=== PATIENT | female | born 1990 | race Caucasian/White ===

== ENCOUNTER 2017-08-09 16:15 | Inpatient (IN) | payer OTHER ==
[2017-08-09] MEDS ORDERED: Lidocaine 1% 30 ML SDV ONE (16:23)
--- NOTE | 2017-08-09 16:55 | PCM.PREANE ---
Preanesthetic Assessment - Anesthesia/Transfusion/Family Hx Anesthesia History: Prior Anesthesia Without Reaction Family History of Anesthesia Reaction: No Transfusion History: No Prior Transfusion(s) - Review of Systems General: No Symptoms Pulmonary: No Symptoms Cardiovascular: No Symptoms Gastrointestinal: Abdominal Pain (cramping) Neurological: No Symptoms Other: Reports: Easy Bruising - Physical Assessment NPO Status Date: 08/09/17 NPO Status Time: 14:30 (crackers and water) O2 Sat by Pulse Oximetry: 99 Respiratory Rate: 16 Vital Signs: Last Vital Signs Temp 96.6 F 08/09/17 16:20 Pulse 73 08/09/17 16:20 Resp 16 08/09/17 16:20 BP 115/70 08/09/17 16:20 Pulse Ox 99 08/09/17 16:20 Height: 5 ft 6 in Weight: 67.132 kg ASA Class: 1E Mental Status: Alert & Oriented x3 Airway Class: Mallampati = 1 Dentition: Reports: Normal Dentition Thyro-Mental Finger Breadths: 3 ROM/Head Extension: Full Lungs: Clear to Auscultation, Normal Respiratory Effort Cardiovascular: Regular Rate, Regular Rhythm - Allergies Allergies/Adverse Reactions: Allergies Allergy/AdvReac Type Severity Reaction Status Date / Time nickel Allergy Rash Verified 08/09/17 16:26 - Blood Blood Available: No - Acknowledgements Anesthesia Type Planned: General Anesthesia Pt an Appropriate Candidate for the Planned Anesthesia: Yes Alternatives and Risks of Anesthesia Discussed w Pt/Guardian: Yes Pt/Guardian Understands and Agrees with Anesthesia Plan: Yes PreAnesthesia Questionnaire Cardiovascular History: Reports: Other (See Below) Other Cardiovascular History: heart murmur as a child but has resolved Respiratory History: Reports: None 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 OB/BYN History: hx bartholin cyst removal Dermatologic History: Reports: Eczema - Past Surgical History HEENT Surgical History: Reports: Oral Surgery Female Surgical History: Reports: D&C - SUBSTANCE USE Smoking Status *Q: Never Smoker Tobacco Use Within Last Twelve Months: No Second Hand Smoke Exposure: No Days Per Week of Alcohol Use: 0 Recreational Drug Use History: No - HOME MEDS Home Medications: Home Meds Vit W-Ca,Fe,FA(<1 mg) [ Vitamins] 1 each PO DAILY 04/30/16 [ History] Acetaminophen [Tylenol] 650 mg PO Q4H PRN #0 tablet 05/02/16 [Rx] Docusate Sodium [Colace] 100 mg PO BID PRN #0 cap 05/02/16 [Rx] Ibuprofen [IJD: Ibuprofen] 600 mg PO Q4H PRN #0 tablet 05/02/16 [Rx] - CURRENT (IN HOUSE) MEDS Current Meds: Current Medications Discontinued Medications Lidocaine HCl (Xylocaine-Mpf 1%) Confirm Administered Dose 30 ml .ROUTE .STK- MED ONE Stop: 08/09/17 16:24
[2017-08-09] MEDS ORDERED: Lidocaine 1% 4 ML ONE (17:16)
[2017-08-09] MEDS ORDERED: fentaNYL 250 MCG/5 ML SDV ONE (17:16)
[2017-08-09] MEDS ORDERED: Ondansetron 4 MG/2 ML SDV ONE (17:16)
[2017-08-09] MEDS ORDERED: Succinylcholine 200 MG/10 ML MDV ONE (17:16)
[2017-08-09] MEDS ORDERED: Propofol 200 MG/20 ML SDV ONE (17:16)
[2017-08-09] MEDS ORDERED: Midazolam 1 MG/ML 2 ML SDV ONE (17:16)
[2017-08-09] MEDS ORDERED: HYDROmorphone 1 MG/ML Syringe IVPUSH PRN (17:21)
[2017-08-09] MEDS ORDERED: fentaNYL 100 MCG/2 ML SDV IVPUSH PRN (17:21)
[2017-08-09] MEDS ORDERED: Meperidine PF 50 MG/ML Syringe IVPUSH PRN (17:21)
[2017-08-09] MEDS ORDERED: Ondansetron 4 MG/2 ML SDV IVPUSH PRN ×2 (17:21→19:58)
[2017-08-09] MEDS ORDERED: ceFAZolin 1 GM Vial ONE (17:35)
[2017-08-09] MEDS ORDERED: Misoprostol 200 MCG Tab ONE (17:51)
[2017-08-09] MEDS ORDERED: Lactated Ringers 1,000 ML ONE ×2 (18:05→18:17)
--- NOTE | 2017-08-09 18:32 | PCM.POSTAN ---
POST ANESTHESIA ASSESSMENT - MENTAL STATUS Mental Status: Alert, Oriented - VITAL SIGNS Pulse Rate: 111 SaO2: 97 Resp Rate: 17 Blood Pressure: 104/46 Temperature: 98.6 F - RESPIRATORY Respiratory Status: Respiratory Rate WNL, Airway Patent, O2 Saturation Stable, Supplemental Oxygen - CARDIOVASCULAR CV Status: Pulse Rate WNL, Blood Pressure Stable - GASTROINTESTINAL GI Status: No Symptoms - PAIN Pain Score: 0 - POST OP HYDRATION Hydration Status: Adequate & Stable
--- NOTE | 2017-08-09 18:47 | PCM.OPNOTE ---
- General Post-Op/Procedure Note Date of Surgery/Procedure: 08/09/17 Operative Procedure(s): Suction D&C Findings: SVE with a mobile, anteverted uterus. Pre Op Diagnosis: Non viable measure 11 weeks s/p D&C earlier today - increased bleeding, concern for retained POC Post-Op Diagnosis: Small, 2 x 2 cm, piece of retained placenta. Hemorrhage - 700 cc Anesthesia Technique: General ET Tube Primary Surgeon: Mis Paz Anesthesia Provider: Tanisha Montejo Pathology: Uterine contents discarded Fluid Replacement, Intraop: 1,500 Output, Urine Amount: 200 EBL in mLs: 700 Complications: None Condition: Good Free Text/Narrative:: The risks, benefits, indications, potential complications, and alternatives were explained to the patient and informed consent obtained. The patient was brought to the OR where anesthesia was induced without difficulty. She was placed in the dorsal lithotomy position and prepped in the usual sterile fashion. A bi-valve speculum was placed in the vagina and the cervix was then cleansed with betadine. A large amount of clot was noted in the cervix which was removed with a ring forceps. An allis clamp was placed on the cervix. 10 cc of 1% lidocaine were injected in a paracervical fashion for local anesthesia. Next the cervix was sequentially dilated to a #10 dilator under ultrasound guidance. A size 10-mm cannula was then inserted into the uterus up to the level of the fundus. Next an electric vacuum aspiration was performed by slowly rotating the cannula and performing a gentle in and out motion. Return of large amount of blood/clot noted in addition to small amount of placenta. Aspiration of uterine contents was performed with abdominal ultrasound guidance. This procedure was repeated until no further return of tissue noted and ultrasound demonstrated a thin uterine stripe. Cervix/ bleeding monitored and after a few minutes unfortunately bleeding increased. Repeat pass of the uterus done with an 8-mm cannula. Bleeding again seemed to slow initially, but then increased again. Patient at this time given 1,000 mcg of rectal cytotec. One last pass with combination of 8 and 10 mm cannula then done. A gritty texture was noted at the end of the procedure. The allis was removed from the cervix. The patient tolerated the procedure well.
[2017-08-09] MEDS ORDERED: Methylergonovine 0.2 MG/1 ML Amp ONE (18:48)
--- NOTE | 2017-08-09 18:51 | PCM.HP ---
H&P History of Present Illness - General Date of Service: 08/09/17 Admit Problem/Dx: Admission Diagnosis/Problem Admission Diagnosis/Problem Bleeding Source of Information: Patient History Limitations: Reports: No Limitations - History of Present Illness Initial Comments - Free Text/Narative: Patient is a 27 y/o who unfortunately had a demise documented in her current earlier this week. US showed baby to be measuring 11 6/7 wks. She was counseled on need for D&C and had a procedure done earlier today which was thought to be uncomplicated. She was taken to PACU, but while in PACU had a significant increase in her bleeding. She had ate while in PACU and so was brought to ER where a more emergent procedure could be done in hospital OR. Is feeling significant cramping. No other concerns. 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 : 2 Para: 1 Dermatologic History: Reports: Eczema - Past Surgical History HEENT Surgical History: Reports: Oral Surgery Female Surgical History: Reports: D&C Other Female Surgeries/Procedures: Bartholin cyst excision Social & Family History - Family History Oncologic: Reports: Breast - Tobacco Use Smoking Status *Q: Never Smoker Second Hand Smoke Exposure: No - Caffeine Use Caffeine Use: Reports: Coffee - Alcohol Use Alcohol Use History: No Days Per Week of Alcohol Use: 0 - Recreational Drug Use Recreational Drug Use: No H&P Review of Systems - Review of Systems: Review Of Systems: See Below General: Reports: No Symptoms Pulmonary: Reports: No Symptoms Cardiovascular: Reports: No Symptoms Gastrointestinal: Reports: Abdominal Pain Genitourinary: Reports: Other (heavy bleeding) Musculoskeletal: Reports: No Symptoms Exam - Exam Exam: See Below - Vital Signs Vital Signs: Last Vital Signs Temp 37.5 C 08/09/17 18:45 Pulse 81 08/09/17 18:45 Resp 20 08/09/17 18:45 BP 116/63 08/09/17 18:45 Pulse Ox 100 08/09/17 18:45 Weight: 67.132 kg - Exam General: Alert, Oriented, Cooperative Lungs: Clear to Auscultation, Normal Respiratory Effort Cardiovascular: Regular Rate, Regular Rhythm GI/Abdominal Exam: Soft, Non-Tender (Female) Exam: Vaginal Bleeding Extremities: Normal Inspection - Patient Data Result Diagrams: 08/10/17 05:45 *Q Meaningful Use (ADM) - VTE *Q VTE Criteria *Q: - Stroke *Q Stroke Criteria *Q: - AMI *Q AMI Criteria *Q: - Problem List (1) Non-viable SNOMED Code(s): 402928771 ICD Code: O02.89 - OTHER ABNORMAL PRODUCTS OF CONCEPTION Status: Acute (2) Retained products of conception SNOMED Code(s): 957862466 ICD Code: EER9900 - Status: Acute Problem List Initiated/Reviewed/Updated: Yes Orders Last 24hrs: Active Orders 24 hr Category Date Time Status Patient Status [ADT] Routine ADT 08/09/17 16:53 Active Communication Order [RC] ROUTINE Care 08/09/17 17:21 Active Cooling Warming Measures [RC] ASDIRECTED Care 08/09/17 17:21 Active Oxygen Therapy [RC] ASDIRECTED Care 08/09/17 17:21 Active Pulse Oximetry [RC] ASDIRECTED Care 08/09/17 17:21 Active Vital Signs [RC] Q15M Care 08/09/17 17:21 Active HYDROmorphone [Dilaudid] Med 08/09/17 17:21 Active 0.5 mg IVPUSH Q15M PRN Meperidine [Demerol] Med 08/09/17 17:21 Active 12.5 mg IVPUSH ONETIME PRN Methylergonovine [Methergine] Med 08/09/17 18:45 Ordered 0.2 mg IM Q4H Ondansetron [Zofran] Med 08/09/17 17:21 Active 4 mg IVPUSH ONETIME PRN fentaNYL [Sublimaze] Med 08/09/17 17:21 Active 50 mcg IVPUSH Q5M PRN Schedule Procedure [COMM] Stat Oth 08/09/17 16:53 Ordered Medication Orders Fentanyl (Sublimaze) 50 mcg IVPUSH Q5M PRN PRN Reason: Pain Hydromorphone HCl (Dilaudid) 0.5 mg IVPUSH Q15M PRN PRN Reason: severe pain Meperidine HCl (Demerol) 12.5 mg IVPUSH ONETIME PRN PRN Reason: shivering Methylergonovine Maleate (Methergine) 0.2 mg IM Q4H ARLET Stop: 08/10/17 06:46 Ondansetron HCl (Zofran) 4 mg IVPUSH ONETIME PRN PRN Reason: Nausea/Vomiting Assessment/Plan Comment:: Concerns for continued bleeding / possible retained POC after D&C at ~12 weeks for non viable . * Plan repeat D&C. Consent signed. Agrees to transfusion if indicated
[2017-08-09] MEDS: Methylergonovine 0.2 MG/1 ML Amp IM SCH ×2 (19:08→22:34)
[2017-08-09] MEDS ORDERED: Acetaminophen/HYDROcodone 325-5 MG Tab PO PRN (19:58)
[2017-08-09] MEDS ORDERED: Acetaminophen/Codeine 300-30 MG Tab PO PRN (20:38)
[2017-08-09] MEDS ORDERED: Acetaminophen 325 MG Tab PO PRN (20:38)
[2017-08-09] MEDS ORDERED: Ibuprofen 600 MG Tab PO PRN (20:40)
[2017-08-10] MEDS: Methylergonovine 0.2 MG/1 ML Amp IM SCH ×2 (02:41→06:37)
--- NOTE | 2017-08-10 07:06 | PCM.SURGPN ---
- General Info Date of Service: 08/10/17 POD#: 1 Functional Status: Reports: Pain Controlled, Tolerating Diet, Ambulating, Urinating - Review of Systems General: Reports: No Symptoms Pulmonary: Reports: No Symptoms Cardiovascular: Reports: No Symptoms Gastrointestinal: Reports: No Symptoms Genitourinary: Reports: No Symptoms Musculoskeletal: Reports: No Symptoms - Patient Data Vitals - Most Recent: Last Vital Signs Temp 37.1 C 08/10/17 02:45 Pulse 70 08/10/17 02:45 Resp 15 08/10/17 02:45 BP 108/56 L 08/10/17 02:45 Pulse Ox 97 08/10/17 02:45 Weight - Most Recent: 67.132 kg I&O - Last 24 Hours: Intake & Output 08/09/17 08/10/17 08/10/17 22:59 06:59 14:59 Intake Total 1925 Output Total 200 Balance 1725 Lab Results Last 24 Hrs: Laboratory Results - last 24 hr 08/10/17 Range/Units 05:45 WBC 13.51 H (3.98-10.04) K/mm3 RBC 3.33 L (3.98-5.22) M/mm3 Hgb 10.1 L (11.2-15.7) gm/L Hct 29.8 L (34.1-44.9) % MCV 89.5 (79.4-94.8) fl MCH 30.3 (25.6-32.2) pg MCHC 33.9 (32.2-35.5) g/dl RDW Std Deviation 38.8 (36.4-46.3) fL Plt Count 155 L (182-369) K/mm3 MPV 10.6 (9.4-12.3) fl Med Orders - Current: Current Medications Acetaminophen (Tylenol) 650 mg PO Q6H PRN PRN Reason: Pain Acetaminophen/Codeine Phosphate (Tylenol With Codeine No.3 300mg/30mg) 2 tab PO Q4H PRN PRN Reason: Pain Hydrocodone Bitart/Acetaminophen ([place] 325-5 Mg) 2 tab PO Q3H PRN PRN Reason: Pain (moderate 4-6) Hydromorphone HCl (Dilaudid) 0.5 mg IVPUSH Q15M PRN PRN Reason: severe pain Ibuprofen (Motrin) 600 mg PO Q6H PRN PRN Reason: Pain Meperidine HCl (Demerol) 12.5 mg IVPUSH ONETIME PRN PRN Reason: shivering Ondansetron HCl (Zofran) 4 mg IVPUSH ONETIME PRN PRN Reason: Nausea/Vomiting Ondansetron HCl (Zofran) 4 mg IVPUSH Q4H PRN PRN Reason: Nausea/Vomiting Discontinued Medications Cefazolin Sodium (Ancef) Confirm Administered Dose 2 gm .ROUTE .STK-MED ONE Stop: 08/09/17 17:36 Fentanyl (Sublimaze) Confirm Administered Dose 250 mcg .ROUTE .STK-MED ONE Stop: 08/09/17 17:17 Fentanyl (Sublimaze) 50 mcg IVPUSH Q5M PRN PRN Reason: Pain Lidocaine HCl (Xylocaine-Mpf 1%) Confirm Administered Dose 4 mls @ as directed .ROUTE .STK-MED ONE Stop: 08/09/17 17:17 Lactated Ringer's (Ringers, Lactated) Confirm Administered Dose 1,000 mls @ as directed .ROUTE .STK-MED ONE Stop: 08/09/17 18:06 Lactated Ringer's (Ringers, Lactated) Confirm Administered Dose 1,000 mls @ as directed .ROUTE .STK-MED ONE Stop: 08/09/17 18:18 Lidocaine HCl (Xylocaine-Mpf 1%) Confirm Administered Dose 30 ml .ROUTE .STK- MED ONE Stop: 08/09/17 16:24 Last Admin: 08/09/17 17:26 Dose: 7 ml Methylergonovine Maleate (Methergine) 0.2 mg IM Q4H ARLET Stop: 08/10/17 06:46 Last Admin: 08/10/17 06:37 Dose: 0.2 mg Methylergonovine Maleate (Methergine) Confirm Administered Dose 0.2 mg .ROUTE .STK-MED ONE Stop: 08/09/17 18:49 Midazolam HCl (Versed 1 Mg/Ml) Confirm Administered Dose 2 mg .ROUTE .STK-MED ONE Stop: 08/09/17 17:17 Misoprostol (Cytotec) Confirm Administered Dose 1,000 mcg .ROUTE .STK-MED ONE Stop: 08/09/17 17:52 Last Admin: 08/09/17 18:05 Dose: 1,000 mcg Ondansetron HCl (Zofran) Confirm Administered Dose 4 mg .ROUTE .STK-MED ONE Stop: 08/09/17 17:17 Propofol (Diprivan 20 Ml) Confirm Administered Dose 200 mg .ROUTE .STK-MED ONE Stop: 08/09/17 17:17 Succinylcholine Chloride (Quelicin) Confirm Administered Dose 200 mg .ROUTE .STK -MED ONE Stop: 08/09/17 17:17 - Exam General: Alert, Oriented, Cooperative GI/Abdominal Exam: Soft, Non-Tender Extremities: Normal Inspection - Problem List & Annotations (1) Non-viable SNOMED Code(s): 840202063 Code(s): O02.89 - OTHER ABNORMAL PRODUCTS OF CONCEPTION Status: Acute (2) Retained products of conception SNOMED Code(s): 508535648 Code(s): WHS3636 - Status: Acute - Problem List Review Problem List Initiated/Reviewed/Updated: Yes - My Orders Last 24 Hours: Active Orders 24 hr Category Date Time Status Insert Urinary Catheter [OM.PC] Q24H Care 08/09/17 17:25 Ordered Intake and Output [RC] PER UNIT ROUTINE Care 08/09/17 19:58 Active Up ad Clarissa [RC] PER UNIT ROUTINE Care 08/09/17 19:58 Active Vital Signs [RC] Q4HR Care 08/09/17 19:58 Active Regular Diet [DIET] Diet 08/09/17 Dinner Active Acetaminophen [Tylenol] Med 08/09/17 20:38 Active 650 mg PO Q6H PRN Acetaminophen/Codeine [Tylenol with Codeine No.3 300MG/ Med 08/09/17 20:38 Active 30MG] 2 tab PO Q4H PRN Acetaminophen/HYDROcodone [[place] 325-5 MG] Med 08/09/17 19:58 Active 2 tab PO Q3H PRN Ibuprofen [Motrin] Med 08/09/17 20:40 Active 600 mg PO Q6H PRN Ondansetron [Zofran] Med 08/09/17 19:58 Active 4 mg IVPUSH Q4H PRN Perineal Care [OM.PC] Per Unit Routine Oth 08/09/17 19:58 Ordered Medication Orders Acetaminophen (Tylenol) 650 mg PO Q6H PRN PRN Reason: Pain Acetaminophen/Codeine Phosphate (Tylenol With Codeine No.3 300mg/30mg) 2 tab PO Q4H PRN PRN Reason: Pain Hydrocodone Bitart/Acetaminophen ([place] 325-5 Mg) 2 tab PO Q3H PRN PRN Reason: Pain (moderate 4-6) Hydromorphone HCl (Dilaudid) 0.5 mg IVPUSH Q15M PRN PRN Reason: severe pain Ibuprofen (Motrin) 600 mg PO Q6H PRN PRN Reason: Pain Meperidine HCl (Demerol) 12.5 mg IVPUSH ONETIME PRN PRN Reason: shivering Ondansetron HCl (Zofran) 4 mg IVPUSH ONETIME PRN PRN Reason: Nausea/Vomiting Ondansetron HCl (Zofran) 4 mg IVPUSH Q4H PRN PRN Reason: Nausea/Vomiting - Assessment Assessment (Free Text/Narrative):: POD#1 from repeat D&C after demise (measuring 11.5 wks). 2nd D&C for hemorrhage with findings of small residual placenta - Plan Plan (Free Text/Narrative):: * S/p scheduled methergine. Bleeding minimal overnight * Hb as expected this AM. No further monitoring * Will discharge home this AM * Return in 2 weeks for post op check
--- NOTE | 2017-08-10 07:07 | PCM.DCSUM1 ---
Discharge Summary - Discharge Data Discharge Date: 08/10/17 Discharge Disposition: Home, Self-Care 01 Condition: Good - Patient Summary/Data Operative Procedure(s) Performed: Suction D&C Complications: None Consults: None Recommended Follow-up Testing/Procedures: Follow up in 2-3 weeks for post op check Hospital Course: Patient admitted for 2nd D&C. This was notable for an EBL of 700 cc in OR. Bleeding also needed to be controlled with additional uterotonics. Cytotec given in OR and 2nd dose of methergine given in PACU (first given at [facility] ). Given large EBL (in addition to bleeding prior to onset of 2nd procedure) and desire for continued monitoring she was admitted and given scheduled methergine throughout the night. She did well with this with only scant bleeding noted. Hb in AM with appropriate drop. She was otherwise feeling well and discharged to home - Patient Instructions Diet: Regular Diet as Tolerated Diet, Other: Pelvic rest Activity: As Tolerated Driving: May Drive Today Showering/Bathing: May Shower Showering/Bathing, Other: May Bathe Notify Provider of: Fever, Increased Pain, Swelling and Redness, Drainage, Nausea and/or Vomiting - Discharge Plan Home Medications: Home Meds Vit W-Ca,Fe,FA(<1 mg) [ Vitamins] 1 each PO DAILY 04/30/16 [ History] Ibuprofen [IJD: Ibuprofen] 600 mg PO Q6H PRN tablet 08/10/17 [Rx] Referrals: Mis Paz MD [Primary Care Provider] - (2 weeks post op check ) - Discharge Summary/Plan Comment DC Time >30 min.: No - Patient Data Vitals - Most Recent: Last Vital Signs Temp 37.1 C 08/10/17 02:45 Pulse 70 08/10/17 02:45 Resp 15 08/10/17 02:45 BP 108/56 L 08/10/17 02:45 Pulse Ox 97 08/10/17 02:45 Weight - Most Recent: 67.132 kg I&O - Last 24 hours: Intake & Output 08/09/17 08/10/17 08/10/17 22:59 06:59 14:59 Intake Total 1925 Output Total 200 Balance 1725 Lab Results - Last 24 hrs: Laboratory Results - last 24 hr 03/22/18 Range/Units 05:45 WBC 13.51 H (3.98-10.04) K/mm3 RBC 3.33 L (3.98-5.22) M/mm3 Hgb 10.1 L (11.2-15.7) gm/L Hct 29.8 L (34.1-44.9) % MCV 89.5 (79.4-94.8) fl MCH 30.3 (25.6-32.2) pg MCHC 33.9 (32.2-35.5) g/dl RDW Std Deviation 38.8 (36.4-46.3) fL Plt Count 155 L (182-369) K/mm3 MPV 10.6 (9.4-12.3) fl Med Orders - Current: Current Medications Acetaminophen (Tylenol) 650 mg PO Q6H PRN PRN Reason: Pain Acetaminophen/Codeine Phosphate (Tylenol With Codeine No.3 300mg/30mg) 2 tab PO Q4H PRN PRN Reason: Pain Hydrocodone Bitart/Acetaminophen ([place] 325-5 Mg) 2 tab PO Q3H PRN PRN Reason: Pain (moderate 4-6) Hydromorphone HCl (Dilaudid) 0.5 mg IVPUSH Q15M PRN PRN Reason: severe pain Ibuprofen (Motrin) 600 mg PO Q6H PRN PRN Reason: Pain Meperidine HCl (Demerol) 12.5 mg IVPUSH ONETIME PRN PRN Reason: shivering Ondansetron HCl (Zofran) 4 mg IVPUSH ONETIME PRN PRN Reason: Nausea/Vomiting Ondansetron HCl (Zofran) 4 mg IVPUSH Q4H PRN PRN Reason: Nausea/Vomiting Discontinued Medications Cefazolin Sodium (Ancef) Confirm Administered Dose 2 gm .ROUTE .STK-MED ONE Stop: 08/09/17 17:36 Fentanyl (Sublimaze) Confirm Administered Dose 250 mcg .ROUTE .STK-MED ONE Stop: 08/09/17 17:17 Fentanyl (Sublimaze) 50 mcg IVPUSH Q5M PRN PRN Reason: Pain Lidocaine HCl (Xylocaine-Mpf 1%) Confirm Administered Dose 4 mls @ as directed .ROUTE .STK-MED ONE Stop: 08/09/17 17:17 Lactated Ringer's (Ringers, Lactated) Confirm Administered Dose 1,000 mls @ as directed .ROUTE .STK-MED ONE Stop: 08/09/17 18:06 Lactated Ringer's (Ringers, Lactated) Confirm Administered Dose 1,000 mls @ as directed .ROUTE .STK-MED ONE Stop: 08/09/17 18:18 Lidocaine HCl (Xylocaine-Mpf 1%) Confirm Administered Dose 30 ml .ROUTE .STK- MED ONE Stop: 08/09/17 16:24 Last Admin: 08/09/17 17:26 Dose: 7 ml Methylergonovine Maleate (Methergine) 0.2 mg IM Q4H ARLET Stop: 08/10/17 06:46 Last Admin: 08/10/17 06:37 Dose: 0.2 mg Methylergonovine Maleate (Methergine) Confirm Administered Dose 0.2 mg .ROUTE .STK-MED ONE Stop: 08/09/17 18:49 Midazolam HCl (Versed 1 Mg/Ml) Confirm Administered Dose 2 mg .ROUTE .STK-MED ONE Stop: 08/09/17 17:17 Misoprostol (Cytotec) Confirm Administered Dose 1,000 mcg .ROUTE .STK-MED ONE Stop: 08/09/17 17:52 Last Admin: 08/09/17 18:05 Dose: 1,000 mcg Ondansetron HCl (Zofran) Confirm Administered Dose 4 mg .ROUTE .STK-MED ONE Stop: 08/09/17 17:17 Propofol (Diprivan 20 Ml) Confirm Administered Dose 200 mg .ROUTE .STK-MED ONE Stop: 08/09/17 17:17 Succinylcholine Chloride (Quelicin) Confirm Administered Dose 200 mg .ROUTE .STK -MED ONE Stop: 08/09/17 17:17 *Q Meaningful Use (DIS) - VTE *Q VTE Criteria *Q: - Stroke *Q Stroke Criteria *Q: - AMI *Q AMI Criteria *Q:
--- NOTE | 2017-08-10 08:01 | PCM48HPAN ---
Post Anesthesia Note - EVALUATION WITHIN 48HRS OF ANESTHETIC Vital Signs in Normal Range: Yes Patient Participated in Evaluation: Yes Respiratory Function Stable: Yes Airway Patent: Yes Cardiovascular Function Stable: Yes Hydration Status Stable: Yes Pain Control Satisfactory: Yes Nausea and Vomiting Control Satisfactory: Yes Mental Status Recovered: Yes
[2017-08-10 08:48] VITALS: BP 101/53
== END 2017-08-10 08:45 | disposition home or self-care (01) | DRG 782 ==
LOC: JD.ED 16:15 → JD.SDS 16:51 → JD.OB 18:55
PROVIDERS: ADMIT Obstetrics & Gynecology; ATTEND Obstetrics & Gynecology
PROC: 10D17Z9 Manual Extraction of Products of Conception, Retained, Via Natural or Artificial Opening (ICD-10-PCS; principal; 2017-08-09)
DX: O02.89 Other abnormal products of conception (principal); Z91.048 Other nonmedicinal substance allergy status; Z3A.11 11 weeks gestation of pregnancy
CPT/HCPCS: 00940; 36415; 85027; 99285; A9270-GY; J0330; J0690; J2210; J2250; J2405; J2704; J3010; J7120

== ENCOUNTER 2018-09-06 00:43 | Inpatient (IN) | payer BC ==
[2018-09-06] MEDS ORDERED: Ondansetron 4 MG/2 ML SDV IVPUSH PRN ×2 (07:02→07:21)
[2018-09-06] MEDS ORDERED: Nalbuphine 20 MG/ML 1 ML Syringe IVPUSH PRN (07:02)
[2018-09-06] MEDS ORDERED: Ampicillin 2 GM in Sodium Chloride 0.9% 100 ML IV ONE (07:02)
[2018-09-06] MEDS ORDERED: Sodium Chloride 0.9% 10 ML Syringe FLUSH PRN (07:02)
[2018-09-06] MEDS ORDERED: Oxytocin/Lactated Ringers 10 UNIT/1,000 ML BAG IV SCH (07:15)
--- NOTE | 2018-09-06 07:15 | PCM.LDHP ---
L&D History of Present Illness - General Date of Service: 09/06/18 Admit Problem/Dx: Patient Status Order with Admit Dx/Problem 09/06/18 07:02 Patient Status [ADT] Routine Admission Diagnosis/Problem Admission Diagnosis/Problem Normal labor Source of Information: Patient History Limitations: Reports: No Limitations - History of Present Illness Introduction:: Patient is a 28 y/o at 40 0/7 wks who presents for elective IOL. Doing well today. Has noted some cramping. No sav signs of labor. 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 : 3 Para: 1 LMP (Approximate): Dermatologic History: Reports: Eczema - Past Surgical History HEENT Surgical History: Reports: Oral Surgery Female Surgical History: Reports: D&C Other Female Surgeries/Procedures: Bartholin cyst excision Social & Family History - Family History Family Medical History: Noncontributory Oncologic: Reports: Breast - Tobacco Use Smoking Status *Q: Never Smoker - Caffeine Use Caffeine Use: Reports: Coffee - Alcohol Use Alcohol Use History: No - Recreational Drug Use Recreational Drug Use: No H&P Review of Systems - Review of Systems: Review Of Systems: See Below General: Reports: No Symptoms Pulmonary: Reports: No Symptoms Cardiovascular: Reports: No Symptoms Gastrointestinal: Reports: No Symptoms Genitourinary: Reports: No Symptoms Musculoskeletal: Reports: No Symptoms Psychiatric: Reports: No Symptoms Neurological: Reports: No Symptoms L&D Exam - Exam Exam: See Below - OB Specific Contraction Intensity: Irritability Movement: Active Heart Tones: Present Heart Rate (FHR) Variability: Moderate (6-25 bmp) Presentation: Vertex - Guevara Score Guevara Score Cervix Position: Posterior Guevara Score Consistency: Soft Guevara Score Effacement: 31-50% Guevara Score Dilation: 1-2 cm Guevara Score Infant's Station: -2 Guevara Score Total: 5 - Exam General: Alert, Oriented, Cooperative Lungs: Clear to Auscultation, Normal Respiratory Effort Cardiovascular: Regular Rate, Regular Rhythm GI/Abdominal Exam: Soft, Non-Tender Genitourinary: Normal external exam Extremities: Normal Inspection Skin: Warm, Dry, Intact - Patient Data Result Diagrams: 09/06/18 07:32 - Problem List (1) 40 weeks gestation of SNOMED Code(s): 52654793 ICD Code: Z3A.40 - 40 WEEKS GESTATION OF Status: Acute Current Visit: No (2) GBS (group B Streptococcus carrier), +RV culture, currently SNOMED Code(s): 9806894173228, 749336438, 3700895089741 ICD Code: O99.820 - STREPTOCOCCUS B CARRIER STATE COMPLICATING Status: Acute Current Visit: No Problem List Initiated/Reviewed/Updated: Yes Orders Last 24hrs: Active Orders 24 hr Category Date Time Status Patient Status [ADT] Routine ADT 09/06/18 07:02 Ordered Activity as Tolerated [RC] PFP Care 09/06/18 07:02 Ordered Communication Order [RC] ASDIRECTED Care 09/06/18 07:02 Ordered Communication Order [RC] ASDIRECTED Care 09/06/18 07:02 Ordered Communication Order [RC] ASDIRECTED Care 09/06/18 07:02 Ordered Heart Tones [RC] ASDIRECTED Care 09/06/18 07:03 Ordered Monitoring [RC] INTERMITTENT Care 09/06/18 07:02 Ordered Non Stress Test [RC] PER UNIT ROUTINE Care 09/06/18 07:02 Ordered Non Stress Test [RC] PER UNIT ROUTINE Care 09/06/18 07:02 Ordered Notify Provider [RC] ASDIRECTED Care 09/06/18 07:02 Ordered Notify Provider [RC] PRN Care 09/06/18 07:02 Ordered Peripheral IV Care [RC] . DIRECTED Care 09/06/18 07:03 Ordered Vaginal Exam [RC] ASDIRECTED Care 09/06/18 07:02 Ordered Vital Signs [RC] ASDIRECTED Care 09/06/18 07:02 Ordered Vital Signs [RC] PER UNIT ROUTINE Care 09/06/18 07:02 Ordered Regular Diet [DIET] Diet 09/06/18 Breakfast Ordered CBC W/O DIFF,HEMOGRAM [HEME] Routine Lab 09/06/18 07:02 Ordered RAPID PLASMA REAGIN,RPR [CHEM] Routine Lab 09/06/18 07:02 Ordered TYPE AND SCREEN [BBK] Routine Lab 09/06/18 07:02 Ordered Ampicillin 1 gm Med 09/06/18 07:15 Ordered Sodium Chloride 0.9% [Normal Saline] 100 ml IV Q4H Ampicillin 2 gm Med 09/06/18 07:02 Ordered Sodium Chloride 0.9% [Normal Saline] 100 ml IV ONETIME Lactated Ringers [Ringers, Lactated] 1,000 ml Med 09/06/18 07:15 Ordered IV ASDIRECTED Nalbuphine [Nubain] Med 09/06/18 07:02 Ordered 10 mg IVPUSH Q2H PRN Ondansetron [Zofran] Med 09/06/18 07:02 Ordered 4 mg IVPUSH Q4H PRN Oxytocin/Lactated Ringers [Pitocin in LR 10 Units/1,000 Med 09/06/18 07:15 Ordered ML] 10 unit in 1,000 ml IV .CONTINUOUS Oxytocin/Lactated Ringers [Pitocin in LR 10 Units/1,000 Med 09/06/18 07:15 Ordered ML] 10 unit in 1,000 ml IV TITRATE Sodium Chloride 0.9% [Saline Flush] Med 09/06/18 07:02 Ordered 10 ml FLUSH ASDIRECTED PRN Electronic Heart Tones Ext w TOCO [WOMSER] Oth 09/06/18 07:02 Ordered Routine Electronic Heart Tones Internal [WOMSER] Per Unit Ot 09/06/18 07:02 Ordered Routine Peripheral IV Insertion Adult [OM.PC] Routine Oth 09/06/18 07:02 Ordered Resuscitation Status Routine Resus Stat 09/06/18 07:02 Ordered Medication Orders Ampicillin Sodium 2 gm/ Sodium (Chloride) 100 mls @ 200 mls/hr IV ONETIME ONE Stop: 09/06/18 07:31 Ampicillin Sodium 1 gm/ Sodium (Chloride) 100 mls @ 200 mls/hr IV Q4H ARLET Lactated Ringer's (Ringers, Lactated) 1,000 mls @ 40 mls/hr IV ASDIRECTED ARLET Oxytocin/Lactated Ringer's (Pitocin In Lr 10 Units/1,000 Ml) 10 unit in 1,000 mls @ 12 mls/hr IV TITRATE ARLET; Protocol Oxytocin/Lactated Ringer's (Pitocin In Lr 10 Units/1,000 Ml) 10 unit in 1,000 mls @ 500 mls/hr IV .CONTINUOUS ARLET Nalbuphine HCl (Nubain) 10 mg IVPUSH Q2H PRN PRN Reason: pain Ondansetron HCl (Zofran) 4 mg IVPUSH Q4H PRN PRN Reason: Nausea/Vomiting Sodium Chloride (Saline Flush) 10 ml FLUSH ASDIRECTED PRN PRN Reason: Keep Vein Open Assessment/Plan Comment:: 28 y/o at 40 0/7 wks who presents for elective IOL * Labs on admission * GBS positive, will start Amp * Leung bulb and pitocin for IOL, AROM when able * Pain management per patient preference * Anticipate
[2018-09-06] MEDS ORDERED: fentaNYL 100 MCG/2 ML SDV EPIDUR PRN (07:21)
[2018-09-06] MEDS ORDERED: ePHEDrine 50 MG/ML SDV IVPUSH PRN (07:21)
[2018-09-06] MEDS ORDERED: Phenylephrine 1 MG in Sodium Chloride 0.9% 10 ML IV SCH (07:30)
[2018-09-06] MEDS: Oxytocin/Lactated Ringers 10 UNIT/1,000 ML BAG IV SCH ×2 (07:30→20:37)
[2018-09-06] MEDS: Lactated Ringers 1,000 ML IV SCH ×3 (07:30→16:50)
--- NOTE | 2018-09-06 08:16 | PCM.PREANE ---
Preanesthetic Assessment - Anesthesia/Transfusion/Family Hx Anesthesia History: Prior Anesthesia Without Reaction Family History of Anesthesia Reaction: No Transfusion History: No Prior Transfusion(s) Intubation History: Unknown - Review of Systems General: No Symptoms (allergy related sore throat) Pulmonary: No Symptoms Cardiovascular: No Symptoms Gastrointestinal: No Symptoms (GERD) Neurological: No Symptoms Other: Reports: Sinus Problem (seasonal allergies), Throat Pain - Physical Assessment NPO Status Date: 09/06/18 NPO Status Time: 06:00 Pulse: 82 O2 Sat by Pulse Oximetry: 99 Respiratory Rate: 16 Blood Pressure: 112/72 Temperature: 37.0 C Height: 1.68 m Weight: 76.657 kg ASA Class: 2 Mental Status: Alert & Oriented x3 Airway Class: Mallampati = 2 Dentition: Reports: Normal Dentition, Caries Thyro-Mental Finger Breadths: 3 Mouth Opening Finger Breadths: 3 ROM/Head Extension: Full Lungs: Clear to Auscultation, Normal Respiratory Effort Cardiovascular: Regular Rate, Regular Rhythm, No Murmurs - Lab Values: Laboratory Last Values WBC 15.47 K/mm3 (3.98-10.04) H 09/06/18 07:32 RBC 3.90 M/mm3 (3.98-5.22) L 09/06/18 07:32 Hgb 12.2 gm/L (11.2-15.7) 09/06/18 07:32 Hct 35.4 % (34.1-44.9) 09/06/18 07:32 MCV 90.8 fl (79.4-94.8) 09/06/18 07:32 MCH 31.3 pg (25.6-32.2) 09/06/18 07:32 MCHC 34.5 g/dl (32.2-35.5) 09/06/18 07:32 RDW Std Deviation 45.1 fL (36.4-46.3) 09/06/18 07:32 Plt Count 116 K/mm3 (182-369) L 09/06/18 07:32 MPV 11.7 fl (9.4-12.3) 09/06/18 07:32 All labs reviewed and noted and within acceptable ranges to proceed with epidural if desired. - Allergies Allergies/Adverse Reactions: Allergies Allergy/AdvReac Type Severity Reaction Status Date / Time nickel Allergy Rash Verified 08/09/17 16:26 - Anesthesia Plan Pre-Op Medication Ordered: None - Acknowledgements Anesthesia Type Planned: Epidural Pt an Appropriate Candidate for the Planned Anesthesia: Yes Alternatives and Risks of Anesthesia Discussed w Pt/Guardian: Yes Pt/Guardian Understands and Agrees with Anesthesia Plan: Yes PreAnesthesia Questionnaire Cardiovascular History: Reports: Other (See Below) Other Cardiovascular History: heart murmur as a child but has resolved Respiratory History: Reports: None 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: , 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 Other OB/BYN History: hx bartholin cyst removal Dermatologic History: Reports: Eczema - Past Surgical History HEENT Surgical History: Reports: Oral Surgery Female Surgical History: Reports: D&C Other Female Surgeries/Procedures: Bartholin cyst excision - HOME MEDS Home Medications: Home Meds Vit Calc,Iron,Folic [ Vitamins] 1 each PO DAILY 04/30/16 [ History] Ibuprofen [IJD: Ibuprofen] 600 mg PO Q6H PRN tablet 08/10/17 [Rx] - CURRENT (IN HOUSE) MEDS Current Meds: Current Medications Ephedrine Sulfate (Ephedrine Sulfate) 5 mg IVPUSH ASDIRECTED PRN PRN Reason: Hypotension Fentanyl (Sublimaze) 100 mcg EPIDUR Q3H PRN PRN Reason: Pain Fentanyl/Bupivacaine HCl (Oxyqfbln-Zmyet-Po 2 Mcg/Ml-0.125%) 100 ml EPIDUR ASDIRECTED PRN PRN Reason: Pain Ampicillin Sodium 1 gm/ Sodium (Chloride) 100 mls @ 200 mls/hr IV Q4H ARLET Lactated Ringer's (Ringers, Lactated) 1,000 mls @ 40 mls/hr IV ASDIRECTED ARLET Last Admin: 09/06/18 07:30 Dose: 40 mls/hr Oxytocin/Lactated Ringer's (Pitocin In Lr 10 Units/1,000 Ml) 10 unit in 1,000 mls @ 12 mls/hr IV TITRATE ARLET; Protocol Last Admin: 09/06/18 07:30 Dose: 2 munits/min, 12 mls/hr Oxytocin/Lactated Ringer's (Pitocin In Lr 10 Units/1,000 Ml) 10 unit in 1,000 mls @ 500 mls/hr IV .CONTINUOUS ARLET Phenylephrine HCl 1 mg/ Sodium (Chloride) 10.1 mls @ 1 mls/sec IV TITRATE ARLET; Protocol Nalbuphine HCl (Nubain) 10 mg IVPUSH Q2H PRN PRN Reason: pain Ondansetron HCl (Zofran) 4 mg IVPUSH Q4H PRN PRN Reason: Nausea/Vomiting Ondansetron HCl (Zofran) 4 mg IVPUSH ONETIME PRN PRN Reason: Nausea/Vomiting Sodium Chloride (Saline Flush) 10 ml FLUSH ASDIRECTED PRN PRN Reason: Keep Vein Open Discontinued Medications Ampicillin Sodium 2 gm/ Sodium (Chloride) 100 mls @ 200 mls/hr IV ONETIME ONE Stop: 09/06/18 07:31 Last Admin: 09/06/18 07:29 Dose: 200 mls/hr
--- NOTE | 2018-09-06 08:43 | PCM.PREANE ---
Preanesthetic Assessment - Anesthesia/Transfusion/Family Hx Anesthesia History: Prior Anesthesia Without Reaction Family History of Anesthesia Reaction: No Transfusion History: No Prior Transfusion(s) Intubation History: Unknown - Review of Systems Other: Reports: Sinus Problem (seasonal allergies), Throat Pain - Physical Assessment NPO Status Date: 09/06/18 NPO Status Time: 06:00 Pulse: 82 O2 Sat by Pulse Oximetry: 99 Respiratory Rate: 16 Blood Pressure: 112/72 Temperature: 37.0 C Vital Signs: Last Vital Signs Temp 37.0 C 09/06/18 08:20 Pulse 82 09/06/18 08:20 Resp 16 09/06/18 08:20 BP 112/72 09/06/18 08:20 Pulse Ox 99 09/06/18 08:20 Height: 1.68 m Weight: 76.657 kg - Lab Values: Laboratory Last Values WBC 15.47 K/mm3 (3.98-10.04) H 09/06/18 07:32 RBC 3.90 M/mm3 (3.98-5.22) L 09/06/18 07:32 Hgb 12.2 gm/L (11.2-15.7) 09/06/18 07:32 Hct 35.4 % (34.1-44.9) 09/06/18 07:32 MCV 90.8 fl (79.4-94.8) 09/06/18 07:32 MCH 31.3 pg (25.6-32.2) 09/06/18 07:32 MCHC 34.5 g/dl (32.2-35.5) 09/06/18 07:32 RDW Std Deviation 45.1 fL (36.4-46.3) 09/06/18 07:32 Plt Count 116 K/mm3 (182-369) L 09/06/18 07:32 MPV 11.7 fl (9.4-12.3) 09/06/18 07:32 - Allergies Allergies/Adverse Reactions: Allergies Allergy/AdvReac Type Severity Reaction Status Date / Time nickel Allergy Rash Verified 08/09/17 16:26 - Anesthesia Plan Pre-Op Medication Ordered: Beta Marek Beta Marek: Carvedilol Med Last Dose Date: 09/05/18 - Acknowledgements Anesthesia Type Planned: MAC Pt an Appropriate Candidate for the Planned Anesthesia: Yes Alternatives and Risks of Anesthesia Discussed w Pt/Guardian: Yes Pt/Guardian Understands and Agrees with Anesthesia Plan: Yes PreAnesthesia Questionnaire Cardiovascular History: Reports: Other (See Below) Other Cardiovascular History: heart murmur as a child but has resolved Respiratory History: Reports: None 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: , 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 Other OB/BYN History: hx bartholin cyst removal Dermatologic History: Reports: Eczema - Past Surgical History HEENT Surgical History: Reports: Oral Surgery Female Surgical History: Reports: D&C Other Female Surgeries/Procedures: Bartholin cyst excision - HOME MEDS Home Medications: Home Meds Vit Calc,Iron,Folic [ Vitamins] 1 each PO DAILY 04/30/16 [ History] Ibuprofen [IJD: Ibuprofen] 600 mg PO Q6H PRN tablet 08/10/17 [Rx] - CURRENT (IN HOUSE) MEDS Current Meds: Current Medications Ephedrine Sulfate (Ephedrine Sulfate) 5 mg IVPUSH ASDIRECTED PRN PRN Reason: Hypotension Fentanyl (Sublimaze) 100 mcg EPIDUR Q3H PRN PRN Reason: Pain Fentanyl/Bupivacaine HCl (Cadjggap-Upzxa-Lb 2 Mcg/Ml-0.125%) 100 ml EPIDUR ASDIRECTED PRN PRN Reason: Pain Ampicillin Sodium 1 gm/ Sodium (Chloride) 100 mls @ 200 mls/hr IV Q4H ARLET Lactated Ringer's (Ringers, Lactated) 1,000 mls @ 40 mls/hr IV ASDIRECTED ARLET Last Admin: 09/06/18 07:30 Dose: 40 mls/hr Oxytocin/Lactated Ringer's (Pitocin In Lr 10 Units/1,000 Ml) 10 unit in 1,000 mls @ 12 mls/hr IV TITRATE ARLET; Protocol Last Admin: 09/06/18 07:30 Dose: 2 munits/min, 12 mls/hr Oxytocin/Lactated Ringer's (Pitocin In Lr 10 Units/1,000 Ml) 10 unit in 1,000 mls @ 500 mls/hr IV .CONTINUOUS ARLET Phenylephrine HCl 1 mg/ Sodium (Chloride) 10.1 mls @ 1 mls/sec IV TITRATE ARLET; Protocol Nalbuphine HCl (Nubain) 10 mg IVPUSH Q2H PRN PRN Reason: pain Ondansetron HCl (Zofran) 4 mg IVPUSH Q4H PRN PRN Reason: Nausea/Vomiting Ondansetron HCl (Zofran) 4 mg IVPUSH ONETIME PRN PRN Reason: Nausea/Vomiting Sodium Chloride (Saline Flush) 10 ml FLUSH ASDIRECTED PRN PRN Reason: Keep Vein Open Discontinued Medications Ampicillin Sodium 2 gm/ Sodium (Chloride) 100 mls @ 200 mls/hr IV ONETIME ONE Stop: 09/06/18 07:31 Last Admin: 09/06/18 07:29 Dose: 200 mls/hr
[2018-09-06] MEDS: Ampicillin 1 GM in Sodium Chloride 0.9% 100 ML IV SCH ×3 (11:12→19:14)
[2018-09-06] MEDS: fentaNYL/Bupivacaine-NS 2 MCG/ML-0.125%/PF 100 ML Bag EPIDUR PRN (16:18)
--- NOTE | 2018-09-06 22:00 | PCM.PNLD ---
Labor Progress Note - VS & Meds Vital Signs: - Uterine Contractions Contraction Intensity: Moderate - Monitoring Monitor Mode: External Ultrasound Heart Rate (FHR) Baseline: 130 Heart Rate (FHR) Variability: Moderate (6-25 bmp) Accelerations: Present, 15x15 Decelerations: None Strip Review: Category I - Vaginal Exam Dilation (cm): 4 Effacement (Percent): 50 Station: -2 Cervical Position: Midposition - Labor Progress (Free Text) Labor Progress: Doing well. Leung out. AROM performed. Pitocin at 14. Continue per protocol Continue GBS prophylaxis.
--- NOTE | 2018-09-06 22:02 | PCM.PNLD ---
Labor Progress Note - VS & Meds Vital Signs: - Uterine Contractions Uterine Monitoring Mode: External [place] Contraction Intensity: Moderate - Monitoring Monitor Mode: External Ultrasound Heart Rate (FHR) Baseline: 135 Heart Rate (FHR) Variability: Moderate (6-25 bmp) Accelerations: Present, 15x15 Decelerations: None Strip Review: Category I - Vaginal Exam Dilation (cm): 6 Effacement (Percent): 80 Station: -1 Cervical Position: Anterior - Labor Progress (Free Text) Labor Progress: Patient doing well. Just received her epidural. Continue management per protocol
--- NOTE | 2018-09-06 22:03 | PCM.SN ---
- Free Text/Narrative Note: 2054 Checked patient. 9 cm dilated. Leung bulb felt in vagina. Deflated and advanced into bladder with release of large amount of urine. Patient also rotated into hands/knees. Will reassess again in about 1 hour
[2018-09-06] MEDS ORDERED: Acetaminophen 325 MG Tab PO ONE (22:22)
--- NOTE | 2018-09-06 22:28 | PCM.SN ---
- Free Text/Narrative Note: 2230 Patient with fever to 100.9 and 100.5. FHR baseline has shifted up to 155. Will give dose of tylenol, start gentamicin, and adjust ampicillin to chorioamnionitis dosing. IUPC placed at 2200. Will attempt to adjust pitocin as needed.
[2018-09-06] MEDS ORDERED: Ampicillin 2 GM in Sodium Chloride 0.9% 100 ML IV SCH (23:00)
--- NOTE | 2018-09-06 23:51 | PCM.SN ---
- Free Text/Narrative Note: 4097 Patient with slow, but steady change. Was 8 cm at 1900. On my check at 2100 was 9 cm, but still relatively high. Did place an IUPC around 2200 and started increasing pitocin again. Now at 20. Exam just now showed her to be anterior lip (but thicker), but resting +1 station and moving down to almost +2 with contraction. status reassuring. Baseline 140, moderate variability, + accelerations, early decelerations. Patient s/p Gent dose, Ampicillin infusing now. Still febrile, but otherwise doing well. Will reassess in another 30-45 minutes Mis Paz MD
[2018-09-07] MEDS: fentaNYL/Bupivacaine-NS 2 MCG/ML-0.125%/PF 100 ML Bag EPIDUR PRN (00:07)
[2018-09-07] MEDS ORDERED: Misoprostol 200 MCG Tab PO STA (01:06)
--- NOTE | 2018-09-07 01:15 | PCM.DEL ---
L & D Note - General Info Date of Service: 09/07/18 - Delivery Note Labor: Induced by ARM Cervical Ripening Method: Balloon Device, Oxytocin Delivery Outcome: Livebirth Delivery Method: Spontaneous Vaginal Delivery-Single Infant Delivery Mode: Spontaneous Presentation: Left Occiput Anterior (SMITHA) Nuchal Cord: None Anesthesia Type: Epidural Amniotic Fluid Description: Bloody Episiotomy Type: None Laceration: 2nd Degree, Perineal Suture type: Vicryl Suture size: 2-0 Placenta: Intact, Spontaneous Cord: 3 Vessels Estimated Blood Loss: 400 Resuscitation Needed: Yes : Bulb Syringe, Stimulated, Warmed, Stanton Used, Warmer Used Score 1 min: 8 Score 5 min: 9 Delivery Comments (Free Text/Narrative):: Patient found to be complete and began pushing. With maternal pushing effort head delivered from SMITHA presentation. No nuchal cord present. With gentle downward traction the shoulders and body delivered. placed on maternal abdomen. Cord clamped and cut. Cord blood obtained. Placenta allowed time to separate and expelled intact. Poor uterine tone at that time. Bladder drained and patient given dose of 600 mcg buccal cytotec with good response. Total EBL of 400 cc. 2nd degree perineal laceration repaired with a 2-0 vicryl in the typical fashion - General Info Date of Service: 09/07/18 - Patient Data Vitals - Most Recent: Last Vital Signs Temp 100.5 C H 09/06/18 22:46 Pulse 82 09/06/18 08:20 Resp 16 09/06/18 08:20 BP 112/72 09/06/18 08:20 Pulse Ox 99 09/06/18 08:20 Weight - Most Recent: 76.657 kg I&O - Last 24 Hours: Intake & Output 09/06/18 09/06/18 09/07/18 14:59 22:59 06:59 Intake Total 180 1100 100 Balance 180 1100 100 - Problem List & Annotations (1) 40 weeks gestation of SNOMED Code(s): 73890842 Code(s): Z3A.40 - 40 WEEKS GESTATION OF Status: Acute Current Visit: No (2) GBS (group B Streptococcus carrier), +RV culture, currently SNOMED Code(s): 3382319902114, 151824780, 2070767094427 Code(s): O99.820 - STREPTOCOCCUS B CARRIER STATE COMPLICATING Status: Acute Current Visit: No (3) Chorioamnionitis SNOMED Code(s): 86567199 Code(s): O41.1290 - CHORIOAMNIONITIS, UNSP TRIMESTER, NOT APPLICABLE OR UNSP Status: Acute Current Visit: Yes Qualifiers: Fetus number: single or unspecified fetus Trimester: third trimester Qualified Code(s): O41.1230 - Chorioamnionitis, third trimester, not applicable or unspecified (4) Vaginal delivery SNOMED Code(s): 432987336 Code(s): O80 - ENCOUNTER FOR FULL-TERM UNCOMPLICATED DELIVERY Status: Acute Current Visit: No - Problem List Review Problem List Initiated/Reviewed/Updated: Yes - My Orders Last 24 Hours: My Active Orders 09/06/18 07:02 Patient Status [ADT] Routine Activity as Tolerated [RC] PFP Communication Order [RC] ASDIRECTED Communication Order [RC] ASDIRECTED Communication Order [RC] ASDIRECTED Monitoring [RC] INTERMITTENT Non Stress Test [RC] PER UNIT ROUTINE Notify Provider [RC] ASDIRECTED Notify Provider [RC] PRN Vaginal Exam [RC] ASDIRECTED Vital Signs [RC] ASDIRECTED Vital Signs [RC] PER UNIT ROUTINE Nalbuphine [Nubain] 10 mg IVPUSH Q2H PRN Ondansetron [Zofran] 4 mg IVPUSH Q4H PRN Sodium Chloride 0.9% [Saline Flush] 10 ml FLUSH ASDIRECTED PRN Electronic Heart Tones Ext w TOCO [WOMSER] Routine Electronic Heart Tones Internal [WOMSER] Per Unit Routine Peripheral IV Insertion Adult [OM.PC] Routine Resuscitation Status Routine 09/06/18 07:03 Heart Tones [RC] ASDIRECTED Peripheral IV Care [RC] . DIRECTED 09/06/18 07:15 Lactated Ringers [Ringers, Lactated] 1,000 ml IV ASDIRECTED Oxytocin/Lactated Ringers [Pitocin in LR 10 Units/1,000 ML] 10 unit in 1,000 ml IV .CONTINUOUS Oxytocin/Lactated Ringers [Pitocin in LR 10 Units/1,000 ML] 10 unit in 1,000 ml IV TITRATE 09/06/18 07:32 RAPID PLASMA REAGIN,RPR [CHEM] Routine 09/06/18 09:21 PATIENT RETYPE [BBK] Routine 09/06/18 23:00 Ampicillin 2 gm Sodium Chloride 0.9% [Normal Saline] 100 ml IV Q6H 09/06/18 Breakfast Regular Diet [DIET] 09/07/18 01:06 miSOPROStol [Cytotec] 600 mcg PO NOW STA 09/07/18 01:07 Patient Status Manage Transfer [TRANSFER] Routine - Assessment Assessment:: 28 y/o G3 now P2012 PPD#0 from at 40 1/7 wks - Plan Plan:: * S/p Amp and Gent in labor. Will not continue antibiotics after delivery * Routine cares * Encourage breast feeding * Discharge home in 2 days
[2018-09-07] MEDS ORDERED: Benzocaine/Menthol 20%-0.5% Spray 56 GM Canister TOP PRN (01:41)
[2018-09-07] MEDS ORDERED: Acetaminophen 325 MG Tab PO PRN (01:41)
[2018-09-07] MEDS ORDERED: Witch Hazel Medicated Pads 40/Jar TOP PRN (01:41)
[2018-09-07] MEDS ORDERED: Docusate Sodium 100 MG Cap PO PRN (01:41)
[2018-09-07] MEDS ORDERED: Lanolin 100% Cream 7 GM Tube TOP PRN (01:41)
[2018-09-07] MEDS: Ibuprofen 600 MG Tab PO PRN ×4 (01:57→19:54)
[2018-09-07] MEDS ORDERED: Bupivacaine 0.25% 10 ML SDV ONE (04:00)
--- NOTE | 2018-09-07 10:16 | PCM48HPAN ---
Post Anesthesia Note - EVALUATION WITHIN 48HRS OF ANESTHETIC Vital Signs in Normal Range: Yes Patient Participated in Evaluation: Yes Respiratory Function Stable: Yes Airway Patent: Yes Cardiovascular Function Stable: Yes Hydration Status Stable: Yes Pain Control Satisfactory: Yes Nausea and Vomiting Control Satisfactory: Yes Mental Status Recovered: Yes Pulse Rate: 80 Resp Rate: 16 Temperature: 98.2 F Blood Pressure: 122/82
[2018-09-08] MEDS: Ibuprofen 600 MG Tab PO PRN ×4 (02:32→21:50)
--- NOTE | 2018-09-08 12:22 | PCM.SN ---
- Free Text/Narrative Note: PPD#1 Afebrile, breast feeding, uterus involuting normally, no heavy vaginal bleeding. No leg cramping.
[2018-09-09] MEDS: Ibuprofen 600 MG Tab PO PRN (04:27)
--- NOTE | 2018-09-09 10:02 | PCM.DCSUM1 ---
Discharge Summary - Hospital Course Free Text/Narrative:: [facility] LIVE L/D Delivery Note Patient Name: HÉCTOR MEDEL Date of : 89 Patient Status: Inpatient Attending Provider: Mis Paz Date: 09/07/18 01:09 Initialization Date: 09/07/18 01:09 L & D Note - General Info Date of Service: 09/07/18 - Delivery Note Labor: Induced by ARM Cervical Ripening Method: Balloon Device, Oxytocin Delivery Outcome: Livebirth Infant Delivery Method: Spontaneous Vaginal Delivery-Single Delivery Mode: Spontaneous Presentation: Left Occiput Anterior (SMITHA) Nuchal Cord: None Anesthesia Type: Epidural Amniotic Fluid Description: Bloody Episiotomy Type: None Laceration: 2nd Degree, Perineal Suture type: Vicryl Suture size: 2-0 Placenta: Intact, Spontaneous Cord: 3 Vessels Estimated Blood Loss: 400 Resuscitation Needed: Yes : Bulb Syringe, Stimulated, Warmed, Ryde Used, Warmer Used Score 1 min: 8 Score 5 min: 9 Delivery Comments (Free Text/Narrative):: Patient found to be complete and began pushing. With maternal pushing effort head delivered from SMITHA presentation. No nuchal cord present. With gentle downward traction the shoulders and body delivered. placed on maternal abdomen. Cord clamped and cut. Cord blood obtained. Placenta allowed time to separate and expelled intact. Poor uterine tone at that time. Bladder drained and patient given dose of 600 mcg buccal cytotec with good response. Total EBL of 400 cc. 2nd degree perineal laceration repaired with a 2-0 vicryl in the typical fashion - General Info Date of Service: 09/07/18 - Patient Data Vitals - Most Recent: Last Vital Signs Temp 100.5 C H 09/06/18 22:46 Pulse 82 09/06/18 08:20 Resp 16 09/06/18 08:20 BP 112/72 09/06/18 08:20 Pulse Ox 99 09/06/18 08:20 Weight - Most Recent: 76.657 kg I&O - Last 24 Hours: Intake & Output 04/18/19 04/18/19 04/19/19 14:59 22:59 06:59 Intake Total 180 1100 100 Balance 180 1100 100 - Problem List & Annotations (1) 40 weeks gestation of SNOMED Code(s): 62343624 Code(s): Z3A.40 - 40 WEEKS GESTATION OF Status: Acute Current Visit: No (2) GBS (group B Streptococcus carrier), +RV culture, currently SNOMED Code(s): 6655613450969, 454670073, 9189304161181 Code(s): O99.820 - STREPTOCOCCUS B CARRIER STATE COMPLICATING Status: Acute Current Visit: No (3) Chorioamnionitis SNOMED Code(s): 48406041 Code(s): O41.1290 - CHORIOAMNIONITIS, UNSP TRIMESTER, NOT APPLICABLE OR UNSP Status: Acute Current Visit: Yes Qualifiers: Fetus number: single or unspecified fetus Trimester: third trimester Qualified Code(s): O41.1230 - Chorioamnionitis, third trimester, not applicable or unspecified (4) Vaginal delivery SNOMED Code(s): 335654963 Code(s): O80 - ENCOUNTER FOR FULL-TERM UNCOMPLICATED DELIVERY Status: Acute Current Visit: No - Problem List Review Problem List Initiated/Reviewed/Updated: Yes - My Orders Last 24 Hours: My Active Orders 09/06/18 07:02 Patient Status [ADT] Routine Activity as Tolerated [RC] PFP Communication Order [RC] ASDIRECTED Communication Order [RC] ASDIRECTED Communication Order [RC] ASDIRECTED Monitoring [RC] INTERMITTENT Non Stress Test [RC] PER UNIT ROUTINE Notify Provider [RC] ASDIRECTED Notify Provider [RC] PRN Vaginal Exam [RC] ASDIRECTED Vital Signs [RC] ASDIRECTED Vital Signs [RC] PER UNIT ROUTINE Nalbuphine [Nubain] 10 mg IVPUSH Q2H PRN Ondansetron [Zofran] 4 mg IVPUSH Q4H PRN Sodium Chloride 0.9% [Saline Flush] 10 ml FLUSH ASDIRECTED PRN Electronic Heart Tones Ext w TOCO [WOMSER] Routine Electronic Heart Tones Internal [WOMSER] Per Unit Routine Peripheral IV Insertion Adult [OM.PC] Routine Resuscitation Status Routine 09/06/18 07:03 Heart Tones [RC] ASDIRECTED Peripheral IV Care [RC] . DIRECTED 09/06/18 07:15 Lactated Ringers [Ringers, Lactated] 1,000 ml IV ASDIRECTED Oxytocin/Lactated Ringers [Pitocin in LR 10 Units/1,000 ML] 10 unit in 1,000 ml IV .CONTINUOUS Oxytocin/Lactated Ringers [Pitocin in LR 10 Units/1,000 ML] 10 unit in 1,000 ml IV TITRATE 09/06/18 07:32 RAPID PLASMA REAGIN,RPR [CHEM] Routine 09/06/18 09:21 PATIENT RETYPE [BBK] Routine 09/06/18 23:00 Ampicillin 2 gm Sodium Chloride 0.9% [Normal Saline] 100 ml IV Q6H 09/06/18 Breakfast Regular Diet [DIET] 09/07/18 01:06 miSOPROStol [Cytotec] 600 mcg PO NOW STA 09/07/18 01:07 Patient Status Manage Transfer [TRANSFER] Routine - Assessment Assessment:: 28 y/o G3 now P2012 PPD#0 from at 40 1/7 wks - Plan Plan:: * S/p Amp and Gent in labor. Will not continue antibiotics after delivery * Routine cares * Encourage breast feeding * Discharge home in 2 days HPI Initial Comments: [facility] LIVE L/D Delivery Note Patient Name: HÉCTOR MEDEL Date of : [birth year] Patient Status: Inpatient Attending Provider: Mis Paz Date: 09/07/18 01:09 Initialization Date: 09/07/18 01:09 L & D Note - General Info Date of Service: 09/07/18 - Delivery Note Labor: Induced by ARM Cervical Ripening Method: Balloon Device, Oxytocin Delivery Outcome: Livebirth Infant Delivery Method: Spontaneous Vaginal Delivery-Single Delivery Mode: Spontaneous Presentation: Left Occiput Anterior (SMITHA) Nuchal Cord: None Anesthesia Type: Epidural Amniotic Fluid Description: Bloody Episiotomy Type: None Laceration: 2nd Degree, Perineal Suture type: Vicryl Suture size: 2-0 Placenta: Intact, Spontaneous Cord: 3 Vessels Estimated Blood Loss: 400 Resuscitation Needed: Yes : Bulb Syringe, Stimulated, Warmed, Ryde Used, Warmer Used Score 1 min: 8 Score 5 min: 9 Delivery Comments (Free Text/Narrative):: Patient found to be complete and began pushing. With maternal pushing effort head delivered from SMITHA presentation. No nuchal cord present. With gentle downward traction the shoulders and body delivered. Infant placed on maternal abdomen. Cord clamped and cut. Cord blood obtained. Placenta allowed time to separate and expelled intact. Poor uterine tone at that time. Bladder drained and patient given dose of 600 mcg buccal cytotec with good response. Total EBL of 400 cc. 2nd degree perineal laceration repaired with a 2-0 vicryl in the typical fashion - General Info Date of Service: 09/07/18 - Patient Data Vitals - Most Recent: Last Vital Signs Temp 100.5 C H 09/06/18 22:46 Pulse 82 09/06/18 08:20 Resp 16 09/06/18 08:20 BP 112/72 09/06/18 08:20 Pulse Ox 99 09/06/18 08:20 Weight - Most Recent: 76.657 kg I&O - Last 24 Hours: Intake & Output 09/06/18 09/06/18 09/07/18 14:59 22:59 06:59 Intake Total 180 1100 100 Balance 180 1100 100 - Problem List & Annotations (1) 40 weeks gestation of SNOMED Code(s): 42798270 Code(s): Z3A.40 - 40 WEEKS GESTATION OF Status: Acute Current Visit: No (2) GBS (group B Streptococcus carrier), +RV culture, currently SNOMED Code(s): 5035929198093, 586535841, 3619867033789 Code(s): O99.820 - STREPTOCOCCUS B CARRIER STATE COMPLICATING Status: Acute Current Visit: No (3) Chorioamnionitis SNOMED Code(s): 40790271 Code(s): O41.1290 - CHORIOAMNIONITIS, UNSP TRIMESTER, NOT APPLICABLE OR UNSP Status: Acute Current Visit: Yes Qualifiers: Fetus number: single or unspecified fetus Trimester: third trimester Qualified Code(s): O41.1230 - Chorioamnionitis, third trimester, not applicable or unspecified (4) Vaginal delivery SNOMED Code(s): 164953384 Code(s): O80 - ENCOUNTER FOR FULL-TERM UNCOMPLICATED DELIVERY Status: Acute Current Visit: No - Problem List Review Problem List Initiated/Reviewed/Updated: Yes - My Orders Last 24 Hours: My Active Orders 09/06/18 07:02 Patient Status [ADT] Routine Activity as Tolerated [RC] PFP Communication Order [RC] ASDIRECTED Communication Order [RC] ASDIRECTED Communication Order [RC] ASDIRECTED Monitoring [RC] INTERMITTENT Non Stress Test [RC] PER UNIT ROUTINE Notify Provider [RC] ASDIRECTED Notify Provider [RC] PRN Vaginal Exam [RC] ASDIRECTED Vital Signs [RC] ASDIRECTED Vital Signs [RC] PER UNIT ROUTINE Nalbuphine [Nubain] 10 mg IVPUSH Q2H PRN Ondansetron [Zofran] 4 mg IVPUSH Q4H PRN Sodium Chloride 0.9% [Saline Flush] 10 ml FLUSH ASDIRECTED PRN Electronic Heart Tones Ext w TOCO [WOMSER] Routine Electronic Heart Tones Internal [WOMSER] Per Unit Routine Peripheral IV Insertion Adult [OM.PC] Routine Resuscitation Status Routine 09/06/18 07:03 Heart Tones [RC] ASDIRECTED Peripheral IV Care [RC] . DIRECTED 09/06/18 07:15 Lactated Ringers [Ringers, Lactated] 1,000 ml IV ASDIRECTED Oxytocin/Lactated Ringers [Pitocin in LR 10 Units/1,000 ML] 10 unit in 1,000 ml IV .CONTINUOUS Oxytocin/Lactated Ringers [Pitocin in LR 10 Units/1,000 ML] 10 unit in 1,000 ml IV TITRATE 09/06/18 07:32 RAPID PLASMA REAGIN,RPR [CHEM] Routine 09/06/18 09:21 PATIENT RETYPE [BBK] Routine 09/06/18 23:00 Ampicillin 2 gm Sodium Chloride 0.9% [Normal Saline] 100 ml IV Q6H 09/06/18 Breakfast Regular Diet [DIET] 09/07/18 01:06 miSOPROStol [Cytotec] 600 mcg PO NOW STA 09/07/18 01:07 Patient Status Manage Transfer [TRANSFER] Routine - Assessment Assessment:: 28 y/o G3 now P2012 PPD#0 from at 40 1/7 wks - Plan Plan:: * S/p Amp and Gent in labor. Will not continue antibiotics after delivery * Routine cares * Encourage breast feeding * Discharge home in 2 days Brief History: [facility] LIVE . L/D Delivery Note. Patient Name: HÉCTOR MEDEL Record Number: [id number]. Date of : [birth year]Patient Status: Inpatient. Attending Provider: Mis Pazcount Number : [id number]. Date: 09/07/18 01:09Initialization Date: 09/07/18 01:09. L & D Note. - General Info. Date of Service: 09/07/18. - Delivery Note. Labor: Induced by ARM. Cervical Ripening Method: Balloon Device, Oxytocin. Delivery Outcome: Livebirth. Infant Delivery Method: Spontaneous Vaginal Delivery- Single. Delivery Mode: Spontaneous. Presentation: Left Occiput Anterior (SMITHA). Nuchal Cord: None. Anesthesia Type: Epidural. Amniotic Fluid Description: Bloody. Episiotomy Type: None. Laceration: 2nd Degree, Perineal. Suture type: Vicryl. Suture size: 2-0. Placenta: Intact, Spontaneous. Cord : 3 Vessels. Estimated Blood Loss: 400. Resuscitation Needed: Yes. [place]: Bulb Syringe, Stimulated, Warmed, Ryde Used, Warmer Used. Score 1 min : 8. Score 5 min: 9. Delivery Comments (Free Text/Narrative):: Patient found to be complete and began pushing. With maternal pushing effort head delivered from SMITHA presentation. No nuchal cord present. With gentle downward traction the shoulders and body delivered. placed on maternal abdomen. Cord clamped and cut. Cord blood obtained. Placenta allowed time to separate and expelled intact. Poor uterine tone at that time. Bladder drained and patient given dose of 600 mcg buccal cytotec with good response. Total EBL of 400 cc. 2nd degree perineal laceration repaired with a 2-0 vicryl in the typical fashion. - General Info. Date of Service: 09/07/18. - Patient Data. Vitals - Most Recent: Last Vital Signs. Temp 100.5 C H 22:46. Pulse 82 09/06/18 08:20. Resp 16 09/06/18 08:20. BP 112/72 08:20. Pulse Ox 99 09/06/18 08:20. Weight - Most Recent: 76.657 kg. I &O - Last 24 Hours: Intake & Output. 09/07/1903. 14:5922:5906: 59. Intake [id number]. [id number]. - Problem List & Annotations. (1) 40 weeks gestation of . SNOMED Code(s): 07942239. Code(s): Z3A.40 - 40 WEEKS GESTATION OF Status: Acute Current Visit: No. ( 2) GBS (group B Streptococcus carrier), +RV culture, currently . SNOMED Code(s): 5540877205307, 958326651, 8467927046067. Code(s): O99.820 - STREPTOCOCCUS B CARRIER STATE COMPLICATING Status: Acute Current Visit: No. (3) Chorioamnionitis. SNOMED Code(s): 66460140. Code(s): O41.1290 - CHORIOAMNIONITIS, UNSP TRIMESTER, NOT APPLICABLE OR UNSP Status: Acute Current Visit: Yes. Qualifiers: Fetus number: single or unspecified fetus Trimester: third trimester Qualified Code(s): O41.1230 - Chorioamnionitis, third trimester, not applicable or unspecified. (4) Vaginal delivery. SNOMED Code(s): 074327551. Code(s): O80 - ENCOUNTER FOR FULL-TERM UNCOMPLICATED DELIVERY Status: Acute Current Visit: No. - Problem List Review. Problem List Initiated/Reviewed/Updated: Yes. - My Orders. Last 24 Hours: My Active Orders. 09/06/18 07:02. Patient Status [ADT] Routine. Activity as Tolerated [ RC] PFP. Communication Order [RC] ASDIRECTED. Communication Order [RC] ASDIRECTED. Communication Order [RC] ASDIRECTED. Monitoring [RC] INTERMITTENT. Non Stress Test [RC] PER UNIT ROUTINE. Notify Provider [RC ] ASDIRECTED. Notify Provider [RC] PRN. Vaginal Exam [RC] ASDIRECTED. Vital Signs [RC] ASDIRECTED. Vital Signs [RC] PER UNIT ROUTINE. Nalbuphine [Nubain] 10 mg IVPUSH Q2H PRN. Ondansetron [Zofran] 4 mg IVPUSH Q4H PRN. Sodium Chloride 0.9% [Saline Flush] 10 ml FLUSH ASDIRECTED PRN. Electronic Heart Tones Ext w TOCO [WOMSER] Routine. Electronic Heart Tones Internal [WOMSER] Per Unit Routine. Peripheral IV Insertion Adult [OM.PC] Routine. Resuscitation Status Routine. 09/06/18 07:03. Heart Tones [RC] ASDIRECTED. Peripheral IV Care [RC] . DIRECTED. 09/06/18 07:15. Lactated Ringers [Ringers, Lactated] 1,000 ml IV ASDIRECTED. Oxytocin/Lactated Ringers [ Pitocin in LR 10 Units/1,000 ML] 10 unit in 1,000 ml IV .CONTINUOUS. Oxytocin/ Lactated Ringers [Pitocin in LR 10 Units/1,000 ML] 10 unit in 1,000 ml IV TITRATE. 09/06/18 07:32. RAPID PLASMA REAGIN,RPR [CHEM] Routine. 09/06/18 09: 21. PATIENT RETYPE [BBK] Routine. 09/06/18 23:00. Ampicillin 2 gm Sodium Chloride 0.9% [Normal Saline] 100 ml IV Q6H. 09/06/18 Breakfast. Regular Diet [DIET]. 09/07/18 01:06. miSOPROStol [Cytotec] 600 mcg PO NOW STA. 09/07/18 01:07. Patient Status Manage Transfer [TRANSFER] Routine. - Assessment. Assessment:: 28 y/o G3 now P2012 PPD#0 from at 40 1/7 wks. - Plan. Plan: : . S/p Amp and Gent in labor. Will not continue antibiotics after delivery. Routine cares. Encourage breast feeding. Discharge home in 2 days Diagnosis: Stroke: No - Discharge Data Discharge Date: 09/09/18 Discharge Disposition: Home, Self-Care 01 Condition: Good - Discharge Diagnosis/Problem(s) (1) 40 weeks gestation of SNOMED Code(s): 19006657 ICD Code: Z3A.40 - 40 WEEKS GESTATION OF Status: Acute Current Visit: Yes (2) Chorioamnionitis SNOMED Code(s): 75450433 ICD Code: O41.1290 - CHORIOAMNIONITIS, UNSP TRIMESTER, NOT APPLICABLE OR UNSP Status: Acute Current Visit: Yes Qualifiers: Fetus number: single or unspecified fetus Trimester: third trimester Qualified Code(s): O41.1230 - Chorioamnionitis, third trimester, not applicable or unspecified (3) Second degree perineal laceration, delivered, current hospitalization SNOMED Code(s): 566254442, 326413350 ICD Code: O70.1 - SECOND DEGREE PERINEAL LACERATION DURING DELIVERY Status : Acute Current Visit: Yes (4) GBS (group B Streptococcus carrier), +RV culture, currently SNOMED Code(s): 1646377035510, 968600972, 4578094301021 ICD Code: O99.820 - STREPTOCOCCUS B CARRIER STATE COMPLICATING Status: Acute Current Visit: No - Patient Summary/Data Complications: none Consults: none Hospital Course: uneventful - Patient Instructions Diet: Usual Diet as Tolerated Driving: Do Not Drive (1 week) Showering/Bathing: May Shower Notify Provider of: Fever, Increased Pain, Swelling and Redness, Drainage, Nausea and/or Vomiting - Discharge Plan *PRESCRIPTION DRUG MONITORING PROGRAM REVIEWED*: Not Applicable *COPY OF PRESCRIPTION DRUG MONITORING REPORT IN PATIENT JESSE: Not Applicable Home Medications: Home Meds Vit Calc,Iron,Folic [ Vitamins] 1 each PO DAILY 04/30/16 [ History] Acetaminophen [Tylenol] 650 mg PO Q6H PRN tablet 09/09/18 [Rx] Docusate Sodium [Colace] 100 mg PO BID PRN cap 09/09/18 [Rx] Ibuprofen [Motrin] 600 mg PO Q6H PRN tablet 09/09/18 [Rx] Lanolin [Lansinoh HPA] 1 applic TOP ASDIRECTED PRN #1 tube 09/09/18 [Rx] Witch Lindsay [Tucks] 1 pad TOP ASDIRECTED PRN pad 09/09/18 [Rx] Referrals: Mis Paz MD [Primary Care Provider] - (We'll call Monday for an appointment for follow-up) - Discharge Summary/Plan Comment DC Time >30 min.: No - Patient Data Vitals - Most Recent: Last Vital Signs Temp 98.2 F 09/09/18 04:28 Pulse 70 09/09/18 04:28 Resp 16 09/09/18 04:28 BP 102/68 09/09/18 04:28 Pulse Ox 99 09/09/18 04:28 Weight - Most Recent: 169 lb Med Orders - Current: Current Medications Acetaminophen (Tylenol) 650 mg PO Q4H PRN PRN Reason: mild pain or fever Last Admin: 09/07/18 23:47 Dose: 650 mg Benzocaine/Menthol (Dermoplast Pain Relief [place]) 0 gm TOP ASDIRECTED PRN PRN Reason: Perineal Comfort Measure Last Admin: 09/07/18 01:58 Dose: 1 canister Docusate Sodium (Colace) 100 mg PO BID PRN PRN Reason: Constipation Emollient Ointment (Lansinoh Hpa) 0 gm TOP ASDIRECTED PRN PRN Reason: Sore Nipples Ibuprofen (Motrin) 600 mg PO Q6H PRN PRN Reason: Mild pain or fever Last Admin: 09/09/18 04:27 Dose: 600 mg Witch Lindsay (Tucks) 1 pad TOP ASDIRECTED PRN PRN Reason: Pain Last Admin: 09/07/18 01:58 Dose: 1 jar Discontinued Medications Acetaminophen (Tylenol) 975 mg PO NOW ONE Stop: 09/06/18 22:23 Last Admin: 09/06/18 22:46 Dose: 975 mg Bupivacaine HCl (Sensorcaine-Mpf 0.25%) 10 ml .ROUTE .STK-MED ONE Stop: 09/07/18 04:01 Ephedrine Sulfate (Ephedrine Sulfate) 5 mg IVPUSH ASDIRECTED PRN PRN Reason: Hypotension Fentanyl (Sublimaze) 100 mcg EPIDUR Q3H PRN PRN Reason: Pain Last Admin: 09/06/18 16:18 Dose: 100 mcg Fentanyl/Bupivacaine HCl (Ffmbsrpg-Xlvdg-Xi 2 Mcg/Ml-0.125%) 100 ml EPIDUR ASDIRECTED PRN PRN Reason: Pain Last Admin: 09/07/18 00:07 Dose: 100 ml Ampicillin Sodium 2 gm/ Sodium (Chloride) 100 mls @ 200 mls/hr IV ONETIME ONE Stop: 09/06/18 07:31 Last Admin: 09/06/18 07:29 Dose: 200 mls/hr Ampicillin Sodium 1 gm/ Sodium (Chloride) 100 mls @ 200 mls/hr IV Q4H ARLET Last Admin: 09/06/18 19:14 Dose: 200 mls/hr Lactated Ringer's (Ringers, Lactated) 1,000 mls @ 40 mls/hr IV ASDIRECTED ARLET Last Admin: 09/06/18 16:50 Dose: 40 mls/hr Oxytocin/Lactated Ringer's (Pitocin In Lr 10 Units/1,000 Ml) 10 unit in 1,000 mls @ 12 mls/hr IV TITRATE ARLET; Protocol Last Titration: 09/06/18 23:55 Dose: 22 munits/min, 132 mls/hr Oxytocin/Lactated Ringer's (Pitocin In Lr 10 Units/1,000 Ml) 10 unit in 1,000 mls @ 500 mls/hr IV .CONTINUOUS ARLET Phenylephrine HCl 1 mg/ Sodium (Chloride) 10.1 mls @ 1 mls/sec IV TITRATE ARLET; Protocol Gentamicin Sulfate 380 mg/ (Sodium Chloride) 109.5 mls @ 200 mls/hr IV ONETIME ONE Stop: 09/06/18 22:52 Last Admin: 09/06/18 22:49 Dose: 200 mls/hr Ampicillin Sodium 2 gm/ Sodium (Chloride) 100 mls @ 200 mls/hr IV Q6H ARLET Last Admin: 09/06/18 23:19 Dose: 200 mls/hr Misoprostol (Cytotec) 600 mcg PO NOW STA Stop: 09/07/18 01:07 Last Admin: 09/07/18 01:06 Dose: 600 mcg Nalbuphine HCl (Nubain) 10 mg IVPUSH Q2H PRN PRN Reason: pain Ondansetron HCl (Zofran) 4 mg IVPUSH Q4H PRN PRN Reason: Nausea/Vomiting Ondansetron HCl (Zofran) 4 mg IVPUSH ONETIME PRN PRN Reason: Nausea/Vomiting Sodium Chloride (Saline Flush) 10 ml FLUSH ASDIRECTED PRN PRN Reason: Keep Vein Open
[2018-09-09 10:29] VITALS: BP 128/76
== END 2018-09-09 10:20 | disposition home or self-care (01) | DRG 560 ==
LOC: JD.OB 00:43 → INTOOBSV 06:54 → OBSVTOIN 09-07 00:43 → JD.OB 09-07 00:44
PROVIDERS: ADMIT Obstetrics & Gynecology; ATTEND Obstetrics & Gynecology
PROC: 00HU33Z Insertion of Infusion Device into Spinal Canal, Percutaneous Approach (ICD-10-PCS; 2018-09-06)
PROC: 3E0R3BZ Introduction of Anesthetic Agent into Spinal Canal, Percutaneous Approach (ICD-10-PCS; 2018-09-06)
PROC: 10H07YZ Insertion of Other Device into Products of Conception, Via Natural or Artificial Opening (ICD-10-PCS; principal; 2018-09-07)
PROC: 0KQM0ZZ Repair Perineum Muscle, Open Approach (ICD-10-PCS; principal; 2018-09-07)
PROC: 3E033VJ Introduction of Other Hormone into Peripheral Vein, Percutaneous Approach (ICD-10-PCS; principal; 2018-09-07)
PROC: 10907ZC Drainage of Amniotic Fluid, Therapeutic from Products of Conception, Via Natural or Artificial Opening (ICD-10-PCS; principal; 2018-09-07)
PROC: 6A550ZT Pheresis of Cord Blood Stem Cells, Single (ICD-10-PCS; principal; 2018-09-07)
PROC: 10E0XZZ Delivery of Products of Conception, External Approach (ICD-10-PCS; principal; 2018-09-07)
PROC: 0U7C7ZZ Dilation of Cervix, Via Natural or Artificial Opening (ICD-10-PCS; principal; 2018-09-07)
DX: O48.0 Post-term pregnancy (principal); Z3A.40 40 weeks gestation of pregnancy; O70.1 Second degree perineal laceration during delivery; O99.824 Streptococcus B carrier state complicating childbirth; O41.1230 Chorioamnionitis, third trimester, not applicable or unspecified; Z37.0 Single live birth; Z91.048 Other nonmedicinal substance allergy status
CPT/HCPCS: 36415; 51701; 51702; 59025; 59409; 85027; 86592; 86850; 86900; 86901; 88307; A9270-GY; J0290; J1580; J2590; J3010; J3490; J7030; J7120

== ENCOUNTER 2021-02-14 09:00 | Inpatient (IN) | payer BC ==
[2021-02-14] MEDS ORDERED: Nalbuphine 10 MG/1 ML Vial IVPUSH PRN (09:42)
[2021-02-14] MEDS ORDERED: Sodium Chloride 0.9% 10 ML Syringe FLUSH PRN (09:42)
[2021-02-14] MEDS ORDERED: Ondansetron 4 MG/2 ML SDV IVPUSH PRN (09:42)
[2021-02-14] MEDS ORDERED: Oxytocin/Lactated Ringers 10 UNIT/1,000 ML BAG IV SCH ×2 (09:45→15:45)
--- NOTE | 2021-02-14 09:45 | PCM.LDHP ---
L&D History of Present Illness - General Date of Service: 02/14/21 Admit Problem/Dx: Patient Status Order with Admit Dx/Problem 02/14/21 09:42 Patient Status [ADT] Routine Admission Diagnosis/Problem Admission Diagnosis/Problem Normal labor Source of Information: Patient History Limitations: Reports: No Limitations - History of Present Illness Introduction:: 30 y/o at 38 6/7 wks who presents in active labor. Contractions started over night and have become progressively stronger. No LOF, but has noted a bloody like discharge change. - Related Data Allergies/Adverse Reactions: Allergies Allergy/AdvReac Type Severity Reaction Status Date / Time cat dander Allergy Other Verified 09/06/18 08:50 nickel Allergy Rash Verified 09/06/18 08:50 Home Medications: Home Meds Vit Calc,Iron,Folic [ Vitamins] 1 each PO DAILY 04/30/16 [History] Acetaminophen [Tylenol] 650 mg PO Q6H PRN tablet 09/09/18 [Rx] Docusate Sodium [Colace] 100 mg PO BID PRN cap 09/09/18 [Rx] Ibuprofen [Motrin] 600 mg PO Q6H PRN tablet 09/09/18 [Rx] Lanolin [Lansinoh HPA] 1 applic TOP ASDIRECTED PRN #1 tube 09/09/18 [Rx] witch Julito [Tucks] 1 pad TOP ASDIRECTED PRN pad 09/09/18 [Rx] Past Medical History Cardiovascular History: Reports: Other (See Below) Other Cardiovascular History: heart murmur as a child but has resolved, hx of pulmonary valve stenosis ECHO in 2020 WNL PROCESS TECH History: Reports: , Spontaneous : 4 Para: 2 LMP (Approximate): Hematologic History: Reports: Idiopathic Thrombocytopenia Dermatologic History: Reports: Eczema - Past Surgical History HEENT Surgical History: Reports: Oral Surgery Female Surgical History: Reports: D&C, Other (See Below) Other Female Surgeries/Procedures: Bartholin cyst excision Social & Family History - Family History Family Medical History: No Pertinent Family History Oncologic: Reports: Breast - Tobacco Use Tobacco Use Status *Q: Never Tobacco User - Caffeine Use Caffeine Use: Reports: Coffee - Alcohol Use Alcohol Use History: No - Recreational Drug Use Recreational Drug Use: No H&P Review of Systems - Review of Systems: Review Of Systems: See Below General: Reports: No Symptoms Pulmonary: Reports: No Symptoms Cardiovascular: Reports: No Symptoms Gastrointestinal: Reports: No Symptoms Genitourinary: Reports: No Symptoms Musculoskeletal: Reports: No Symptoms Skin: Reports: No Symptoms Psychiatric: Reports: No Symptoms Neurological: Reports: No Symptoms L&D Exam - Exam Exam: See Below - OB Specific Contraction Intensity: Moderate to Strong Movement: Active Heart Tones: Present Heart Tones per Min: 125 Heart Rate (FHR) Variability: Moderate (6-25 bpm) Presentation: Vertex - Guevara Score Guevara Score Cervix Position: Midposition Guevara Score Consistency: Soft Guevara Score Effacement: >80% Guevara Score Dilation: 3-4 cm Guevara Score 's Station: -2 Guevara Score Total: 9 - Exam General: Alert, Oriented, Cooperative Lungs: Clear to Auscultation, Normal Respiratory Effort Cardiovascular: Regular Rate, Regular Rhythm GI/Abdominal Exam: Soft, Non-Tender Genitourinary: Normal external exam Extremities: Normal Inspection Skin: Warm, Dry, Intact - Patient Data Result Diagrams: 02/14/21 09:57 - Problem List (1) 38 weeks gestation of SNOMED Code(s): 06273200 ICD Code: Z3A.38 - 38 WEEKS GESTATION OF Status: Acute Current Visit: Yes (2) Normal labor SNOMED Code(s): 03075542 ICD Code: O80 - ENCOUNTER FOR FULL-TERM UNCOMPLICATED DELIVERY; Z37.9 - OUTCOME OF DELIVERY, UNSPECIFIED Status: Acute Current Visit: No (3) Idiopathic thrombocytopenic purpura (ITP) SNOMED Code(s): 58681318 ICD Code: D69.3 - IMMUNE THROMBOCYTOPENIC PURPURA Status: Acute Current Visit: Yes (4) GBS (group B Streptococcus carrier), +RV culture, currently SNOMED Code(s): 5451998274411, 674221937, 2834557198449 ICD Code: O99.820 - STREPTOCOCCUS B CARRIER STATE COMPLICATING Status: Acute Current Visit: No Problem List Initiated/Reviewed/Updated: Yes Orders Last 24hrs: Active Orders 24 hr Category Date Time Status Patient Status [ADT] Routine ADT 02/14/21 09:42 Ordered Activity as Tolerated [RC] PFP Care 02/14/21 09:42 Ordered Communication Order [RC] ASDIRECTED Care 02/14/21 09:42 Ordered Heart Tones [RC] ASDIRECTED Care 02/14/21 09:43 Ordered Non Stress Test [RC] PER UNIT ROUTINE Care 02/14/21 09:42 Ordered Notify Provider [RC] PFP Care 02/14/21 09:42 Ordered Notify Provider [RC] PRN Care 02/14/21 09:42 Ordered Peripheral IV Care [RC] . DIRECTED Care 02/14/21 09:43 Ordered Vital Signs [RC] PER UNIT ROUTINE Care 02/14/21 09:42 Ordered Regular Diet [DIET] Diet 02/14/21 Breakfast Ordered CBC W/O DIFF,HEMOGRAM [HEME] Stat Lab 02/14/21 09:42 Ordered CORONAVIRUS COVID-19 ANALIA [MOLEC] Stat Lab 02/14/21 09:44 Ordered RAPID PLASMA REAGIN,RPR [CHEM] Routine Lab 02/14/21 09:42 Ordered TYPE AND SCREEN [BBK] Stat Lab 02/14/21 09:42 Ordered Ampicillin 1 gm Med 02/14/21 09:45 Ordered Sodium Chloride 0.9% [Normal Saline] 100 ml IV Q4H Ampicillin 2 gm Med 02/14/21 09:42 Ordered Sodium Chloride 0.9% [Normal Saline] 100 ml IV ONETIME Lactated Ringers [Ringers, Lactated] 1,000 ml Med 02/14/21 09:45 Ordered IV ASDIRECTED Nalbuphine [Nubain] Med 02/14/21 09:42 Ordered 10 mg IVPUSH Q2H PRN Ondansetron [Zofran] Med 02/14/21 09:42 Ordered 4 mg IVPUSH Q4H PRN Oxytocin/Lactated Ringers [Pitocin in LR 10 Units/1,000 Med 02/14/21 09:45 Ordered ML] 10 unit in 1,000 ml IV .CONTINUOUS Sodium Chloride 0.9% [Saline Flush] Med 02/14/21 09:42 Ordered 10 ml FLUSH ASDIRECTED PRN Electronic Heart Tones Ext w TOCO [WOMSER] Oth 02/14/21 09:42 Ordered Routine Electronic Heart Tones Internal [WOMSER] Per Unit Oth 02/14/21 09:42 Ordered Routine Peripheral IV Insertion Adult [OM.PC] Routine Oth 02/14/21 09:42 Ordered Resuscitation Status Routine Resus Stat 02/14/21 09:42 Ordered Assessment/Plan Comment:: * Patient comes in with active labor. Very uncomfortable with contractions. Plts unfortunately lower than last evaluation and now 82K. Had been previously started on steroids by Hematology, Dr. Cárdenas, when value was 97K in clinic. Baby also with recurrent variables with every contractions. Good variability, accelerations in between. Bedside US done and does show oligohydramnios. call specialist PHOTOCOMPOSING MACHINE OPERATOR unable to provider epidural with current p latelet value. Have call out to additional PHOTOCOMPOSING MACHINE OPERATOR and awaiting response. Reviewed with family could move forward with AROM/IUPC placement and amnioinfusion to try and minimize variables. Will give back up PHOTOCOMPOSING MACHINE OPERATOR a little time to respond to request first. Also reviewed potential need for if heart rate pattern worsens. As patient not able to be transferred and there is possibility of have called blood bank to have them send platelets to [place] from [place]. * GBS positive, Ampicillin started * Labs
[2021-02-14] MEDS ORDERED: Ampicillin 2 GM AdvVial IV ONE (09:46)
[2021-02-14] MEDS ORDERED: Sodium Chloride 0.9% 100 ML ONE (09:47)
[2021-02-14] MEDS ORDERED: Lactated Ringers 1,000 ML ONE (09:47)
[2021-02-14] MEDS: Lactated Ringers 1,000 ML IV SCH ×2 (09:50→11:17)
[2021-02-14] MEDS ORDERED: Ampicillin 2 GM in Sodium Chloride 0.9% 100 ML IV ONE (10:00)
[2021-02-14] MEDS ORDERED: fentaNYL 100 MCG/2 ML SDV ONE (11:30)
[2021-02-14] MEDS ORDERED: diphenhydrAMINE 50 MG/ML SDV IVPUSH PRN (11:34)
[2021-02-14] MEDS ORDERED: ePHEDrine 50 MG/ML SDV IVPUSH PRN (11:34)
[2021-02-14] MEDS ORDERED: fentaNYL 100 MCG/2 ML SDV EPIDUR PRN (11:34)
[2021-02-14] MEDS: Bupivacaine/fentaNYL/NS 100 ML Bag EPIDUR PRN ×2 (11:45→18:23)
--- NOTE | 2021-02-14 12:02 | PCM.PREANE ---
Preanesthetic Assessment - Procedure Proposed Procedure: Epidural - Anesthesia/Transfusion/Family Hx Anesthesia History: Prior Anesthesia Without Reaction Family History of Anesthesia Reaction: No Transfusion History: No Prior Transfusion(s) Intubation History: Unknown - Review of Systems General: Fatigue Pulmonary: No Symptoms Cardiovascular: No Symptoms Gastrointestinal: Abdominal Pain (labor) Neurological: No Symptoms Other: Reports: None - Physical Assessment Vital Signs: Last Vital Signs Temp 36.8 C 02/14/21 09:42 Pulse 94 02/14/21 09:42 Resp 16 02/14/21 09:42 BP 121/78 02/14/21 09:42 Pulse Ox 98 02/14/21 09:42 Height: 1.68 m Weight: 80.558 kg ASA Class: 2 Mental Status: Alert & Oriented x3 Airway Class: Mallampati = 1 Dentition: Reports: Normal Dentition Thyro-Mental Finger Breadths: 3 Mouth Opening Finger Breadths: 3 ROM/Head Extension: Full Lungs: Clear to Auscultation Cardiovascular: Regular Rate, Regular Rhythm - Lab Values: Laboratory Last Values WBC 17.04 K/mm3 (3.98-10.04) H 02/14/21 09:57 RBC 3.57 M/mm3 (3.98-5.22) L 02/14/21 09:57 Hgb 11.7 gm/dl (11.2-15.7) 02/14/21 09:57 Hct 33.2 % (34.1-44.9) L 02/14/21 09:57 MCV 93.0 fl (79.4-94.8) 02/14/21 09:57 MCH 32.8 pg (25.6-32.2) H 02/14/21 09:57 MCHC 35.2 g/dl (32.2-35.5) 02/14/21 09:57 RDW Std Deviation 45.0 fL (36.4-46.3) 02/14/21 09:57 Plt Count 82 K/mm3 (182-369) L 02/14/21 09:57 MPV 10.7 fl (9.4-12.3) 02/14/21 09:57 SARS-CoV-2 RNA (ANALIA) Negative (NEGATIVE) 02/14/21 10:00 Blood Type O POSITIVE 02/14/21 09:57 Gel Antibody Screen Negative 02/14/21 09:57 - Allergies Allergies/Adverse Reactions: Allergies Allergy/AdvReac Type Severity Reaction Status Date / Time cat dander Allergy Other Verified 02/14/21 10:56 nickel Allergy Rash Verified 02/14/21 10:56 - Blood Blood Available: Yes Product(s) Available: Platelets - Anesthesia Plan Pre-Op Medication Ordered: None - Acknowledgements Anesthesia Type Planned: Epidural Pt an Appropriate Candidate for the Planned Anesthesia: Yes Alternatives and Risks of Anesthesia Discussed w Pt/Guardian: Yes Pt/Guardian Understands and Agrees with Anesthesia Plan: Yes PreAnesthesia Questionnaire - Past Health History Medical/Surgical History: Denies Medical/Surgical History Cardiovascular History: Reports: Other (See Below) Other Cardiovascular History: heart murmur as a child but has resolved, hx of pulmonary valve stenosis ECHO in 2020 WNL Respiratory History: Reports: None Gastrointestinal History: Reports: None, GERD Genitourinary History: Reports: None SHADOWGRAPH OPERATOR 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: Reports: , Spontaneous Other OB/BYN History: hx bartholin cyst removal Musculoskeletal History: Reports: None Neurological History: Reports: None Psychiatric History: Reports: None Endocrine/Metabolic History: Reports: None Hematologic History: Reports: Idiopathic Thrombocytopenia (Kate understands risk of hematoma with epidural placement and agrees to proceed with epidural.) Dermatologic History: Reports: Eczema - Past Surgical History Female Surgical History: Reports: D&C, Other (See Below) - SUBSTANCE USE Tobacco Use Status *Q: Never Tobacco User Second Hand Smoke Exposure: No Days Per Week of Alcohol Use: 0 Number of Drinks Per Day: 0 Total Drinks Per Week: 0 Recreational Drug Use History: No - HOME MEDS Home Medications: Home Meds Vit Calc,Iron,Folic [ Vitamins] 1 each PO DAILY 04/30/16 [History] predniSONE [Prednisone] 20 mg PO DAILY 02/14/21 [History] - CURRENT (IN HOUSE) MEDS Current Meds: Current Medications Diphenhydramine HCl (Diphenhydramine 50 Mg/Ml Sdv) 25 mg IVPUSH Q6H PRN PRN Reason: pruritis Ephedrine Sulfate (Ephedrine 50 Mg/Ml Sdv) 5 mg IVPUSH ASDIRECTED PRN PRN Reason: Hypotension Fentanyl (Fentanyl 100 Mcg/2 Ml Sdv) 100 mcg EPIDUR Q3H PRN PRN Reason: Pain Fentanyl/Bupivacaine HCl (Bupivacaine/Fentanyl/Ns 100 Ml Bag) 100 ml EPIDUR ASDIRECTED PRN PRN Reason: Pain Ampicillin Sodium 1 gm/ Sodium (Chloride) 100 mls @ 200 mls/hr IV Q4H ARLET Oxytocin/Lactated Ringer's (Pitocin In Lr 10 Units/1,000 Ml) 10 unit in 1,000 mls @ 500 mls/hr IV .CONTINUOUS ARLET Lactated Ringer's (Ringers, Lactated) 1,000 mls @ 100 mls/hr IV ASDIRECTED ARLET Last Admin: 02/14/21 11:17 Dose: 100 mls/hr Documented by: Nalbuphine HCl (Nalbuphine 10 Mg/1 Ml Vial) 10 mg IVPUSH Q2H PRN PRN Reason: Pain Ondansetron HCl (Ondansetron 4 Mg/2 Ml Sdv) 4 mg IVPUSH Q4H PRN PRN Reason: Nausea/Vomiting Sodium Chloride (Sodium Chloride 0.9% 10 Ml Syringe) 10 ml FLUSH ASDIRECTED PRN PRN Reason: Keep Vein Open Discontinued Medications Ampicillin Sodium (Ampicillin 2 Gm Advvial) Confirm Administered Dose 2 gm IV .STK-MED ONE Stop: 02/14/21 09:47 Fentanyl (Fentanyl 100 Mcg/2 Ml Sdv) Confirm Administered Dose 100 mcg .ROUTE .STK-MED ONE Stop: 02/14/21 11:31 Last Admin: 02/14/21 11:34 Dose: 100 mcg Documented by: Ampicillin Sodium 2 gm/ Sodium (Chloride) 100 mls @ 200 mls/hr IV ONETIME ONE Stop: 02/14/21 10:29 Last Admin: 02/14/21 09:50 Dose: 200 mls/hr Documented by: Lactated Ringer's (Ringers, Lactated) Confirm Administered Dose 1,000 mls @ as directed .ROUTE .STK-MED ONE Stop: 02/14/21 09:48 Sodium Chloride (Normal Saline) Confirm Administered Dose 100 mls @ as directed .ROUTE .STK-MED ONE Stop: 02/14/21 09:48
[2021-02-14] MEDS ORDERED: Sodium Chloride 0.9% 1,000 ML ONE (12:05)
--- NOTE | 2021-02-14 12:09 | PCM.PNLD ---
Labor Progress Note - VS & Meds Vital Signs: Last Vital Signs Temp 36.8 C 02/14/21 09:42 Pulse 94 02/14/21 09:42 Resp 16 02/14/21 09:42 BP 121/78 02/14/21 09:42 Pulse Ox 98 02/14/21 09:42 Active Medications: Current Medications Diphenhydramine HCl (Diphenhydramine 50 Mg/Ml Sdv) 25 mg IVPUSH Q6H PRN PRN Reason: pruritis Ephedrine Sulfate (Ephedrine 50 Mg/Ml Sdv) 5 mg IVPUSH ASDIRECTED PRN PRN Reason: Hypotension Fentanyl (Fentanyl 100 Mcg/2 Ml Sdv) 100 mcg EPIDUR Q3H PRN PRN Reason: Pain Fentanyl/Bupivacaine HCl (Bupivacaine/Fentanyl/Ns 100 Ml Bag) 100 ml EPIDUR ASDIRECTED PRN PRN Reason: Pain Ampicillin Sodium 1 gm/ Sodium (Chloride) 100 mls @ 200 mls/hr IV Q4H ARLET Oxytocin/Lactated Ringer's (Pitocin In Lr 10 Units/1,000 Ml) 10 unit in 1,000 mls @ 500 mls/hr IV .CONTINUOUS ARLET Lactated Ringer's (Ringers, Lactated) 1,000 mls @ 100 mls/hr IV ASDIRECTED ARLET Last Admin: 02/14/21 11:17 Dose: 100 mls/hr Documented by: Nalbuphine HCl (Nalbuphine 10 Mg/1 Ml Vial) 10 mg IVPUSH Q2H PRN PRN Reason: Pain Ondansetron HCl (Ondansetron 4 Mg/2 Ml Sdv) 4 mg IVPUSH Q4H PRN PRN Reason: Nausea/Vomiting Sodium Chloride (Sodium Chloride 0.9% 10 Ml Syringe) 10 ml FLUSH ASDIRECTED PRN PRN Reason: Keep Vein Open Discontinued Medications Ampicillin Sodium (Ampicillin 2 Gm Advvial) Confirm Administered Dose 2 gm IV .STK-MED ONE Stop: 02/14/21 09:47 Fentanyl (Fentanyl 100 Mcg/2 Ml Sdv) Confirm Administered Dose 100 mcg .ROUTE .STK-MED ONE Stop: 02/14/21 11:31 Last Admin: 02/14/21 11:34 Dose: 100 mcg Documented by: Ampicillin Sodium 2 gm/ Sodium (Chloride) 100 mls @ 200 mls/hr IV ONETIME ONE Stop: 02/14/21 10:29 Last Admin: 02/14/21 09:50 Dose: 200 mls/hr Documented by: Lactated Ringer's (Ringers, Lactated) Confirm Administered Dose 1,000 mls @ as directed .ROUTE .STK-MED ONE Stop: 02/14/21 09:48 Last Admin: 02/14/21 12:05 Dose: 125 mls/hr Documented by: Sodium Chloride (Normal Saline) Confirm Administered Dose 100 mls @ as directed .ROUTE .STK-MED ONE Stop: 02/14/21 09:48 - Uterine Contractions Uterine Monitoring Mode: External [place] Contraction Intensity: Moderate to Strong - Monitoring Monitor Mode: External Ultrasound Heart Rate (FHR) Baseline: 125 Heart Rate (FHR) Variability: Moderate (6-25 bpm) Accelerations: Present, 15x15 Decelerations: Variable Strip Review: Category II - Vaginal Exam Dilation (cm): 4 Effacement (Percent): 90 Station: -2 Cervical Position: Midposition - Labor Progress (Free Text) Labor Progress: Epidural just placed. BRIM POUNCING MACHINE OPERATOR does request that prior to removing epidural that we transfuse platelets as have already been ordered and en-route from [place]. Variables have been present since last assessment. Mostly shallow, but some into the 80's. AROM done with release of minimal fluid. IUPC placed. Will start amnioinfusion. Slight change in SVE since last assessment.
[2021-02-14] MEDS: Ampicillin 1 GM in Sodium Chloride 0.9% 100 ML IV SCH ×2 (13:49→18:07)
[2021-02-14] MEDS ORDERED: Acetaminophen 325 MG Tab PO PRN (15:12)
--- NOTE | 2021-02-14 16:12 | PCM.SN.2 ---
- Free Text/Narrative Note: 1530 Patient was 6 cm at 1400. 6-7 at 1430. Still with variables despite amnioinfusion, but overall reassuring. Moved into hands/knees and IUPC displaced. Tracing appropriate. Will gently start pitocin to try to achieve complete dilation. Mis Paz MD Time Documentation
[2021-02-14] MEDS ORDERED: Bupivacaine 0.25% 10 ML SDV ONE (17:00)
[2021-02-14] MEDS ORDERED: Sodium Chloride 0.9% 250 ML ONE (17:09)
[2021-02-14] MEDS ORDERED: Misoprostol 200 MCG Tab ONE (19:19)
[2021-02-14] MEDS ORDERED: Methylergonovine 0.2 MG/1 ML Amp ONE (19:29)
[2021-02-14] MEDS ORDERED: Methylergonovine 0.2 MG/1 ML Amp IM STA (19:33)
[2021-02-14] MEDS ORDERED: Misoprostol 200 MCG Tab PO STA (19:33)
[2021-02-14] MEDS ORDERED: Docusate Sodium 100 MG Cap PO PRN (20:12)
[2021-02-14] MEDS ORDERED: Benzocaine/Menthol 20%-0.5% Spray 78 GM Cannister TOP PRN (20:12)
[2021-02-14] MEDS ORDERED: Witch Hazel Medicated Pads 40/Jar TOP PRN (20:12)
[2021-02-14] MEDS: Acetaminophen 325 MG Tab PO PRN (21:15)
[2021-02-15] MEDS: Acetaminophen 325 MG Tab PO PRN ×4 (04:17→18:40)
--- NOTE | 2021-02-15 04:58 | PCM.PNPP ---
- General Info Date of Service: 02/15/21 Functional Status: Reports: Pain Controlled, Tolerating Diet, Ambulating, Urinating - Review of Systems General: Reports: No Symptoms Pulmonary: Reports: No Symptoms Cardiovascular: Reports: No Symptoms Gastrointestinal: Reports: Abdominal Pain (Firly intense cramping noted ) Genitourinary: Reports: No Symptoms Musculoskeletal: Reports: No Symptoms Neurological: Reports: No Symptoms - Patient Data Vital Signs - Most Recent: Last Vital Signs Temp 36.8 C 02/14/21 23:32 Pulse 79 02/14/21 23:32 Resp 14 02/14/21 23:32 BP 120/64 02/14/21 23:32 Pulse Ox 97 02/14/21 23:32 Weight - Most Recent: 80.558 kg I&O - Last 24 Hours: Intake & Output 02/14/21 02/14/21 02/15/21 14:59 22:59 06:59 Intake Total 1999 2650 Output Total 1159 48 Balance 1999 1491 -48 Lab Results - Last 24 Hours: Laboratory Results - last 24 hr 02/14/21 02/14/21 02/14/21 Range/Units 09:57 09:57 10:00 WBC 17.04 H (3.98-10.04) K/mm3 RBC 3.57 L (3.98-5.22) M/mm3 Hgb 11.7 (11.2-15.7) gm/dl Hct 33.2 L (34.1-44.9) % MCV 93.0 (79.4-94.8) fl MCH 32.8 H (25.6-32.2) pg MCHC 35.2 (32.2-35.5) g/dl RDW Std Deviation 45.0 (36.4-46.3) fL Plt Count 82 L (182-369) K/mm3 MPV 10.7 (9.4-12.3) fl SARS-CoV-2 RNA (ANALIA) Negative (NEGATIVE) Blood Type O POSITIVE Gel Antibody Screen Negative 02/15/21 Range/Units 04:06 WBC 25.27 H (3.98-10.04) K/mm3 RBC 3.40 L (3.98-5.22) M/mm3 Hgb 10.9 L (11.2-15.7) gm/dl Hct 31.6 L (34.1-44.9) % MCV 92.9 (79.4-94.8) fl MCH 32.1 (25.6-32.2) pg MCHC 34.5 (32.2-35.5) g/dl RDW Std Deviation 45.4 (36.4-46.3) fL Plt Count 109 L (182-369) K/mm3 MPV 10.9 (9.4-12.3) fl SARS-CoV-2 RNA (ANALIA) (NEGATIVE) Blood Type Gel Antibody Screen Med Orders - Current: Current Medications Acetaminophen (Acetaminophen 325 Mg Tab) 650 mg PO Q4H PRN PRN Reason: mild pain or fever Last Admin: 02/15/21 04:17 Dose: 650 mg Documented by: Benzocaine/Menthol (Benzocaine/Menthol 20%-0.5% [place] 78 Gm Cannister) 0 gm TOP ASDIRECTED PRN PRN Reason: Perineal Comfort Measure Last Admin: 02/14/21 21:13 Dose: 1 can Documented by: Docusate Sodium (Docusate Sodium 100 Mg Cap) 100 mg PO BID PRN PRN Reason: Constipation Last Admin: 02/14/21 21:15 Dose: 100 mg Documented by: Lola Montoya (Witch Lindsay Medicated Pads 40/Jar) 1 pad TOP ASDIRECTED PRN PRN Reason: Perineal Comfort Measure Last Admin: 02/14/21 21:12 Dose: 1 tub Documented by: Discontinued Medications Acetaminophen (Acetaminophen 325 Mg Tab) 650 mg PO Q4H PRN PRN Reason: Headache Last Admin: 02/14/21 15:18 Dose: 650 mg Documented by: Ampicillin Sodium (Ampicillin 2 Gm Advvial) Confirm Administered Dose 2 gm IV .STK-MED ONE Stop: 02/14/21 09:47 Last Admin: 02/14/21 13:44 Dose: Not Given Documented by: Diphenhydramine HCl (Diphenhydramine 50 Mg/Ml Sdv) 25 mg IVPUSH Q6H PRN PRN Reason: pruritis Ephedrine Sulfate (Ephedrine 50 Mg/Ml Sdv) 5 mg IVPUSH ASDIRECTED PRN PRN Reason: Hypotension Fentanyl (Fentanyl 100 Mcg/2 Ml Sdv) Confirm Administered Dose 100 mcg .ROUTE .STK-MED ONE Stop: 02/14/21 11:31 Last Admin: 02/14/21 11:34 Dose: 100 mcg Documented by: Fentanyl (Fentanyl 100 Mcg/2 Ml Sdv) 100 mcg EPIDUR Q3H PRN PRN Reason: Pain Fentanyl/Bupivacaine HCl (Bupivacaine/Fentanyl/Ns 100 Ml Bag) 100 ml EPIDUR ASDIRECTED PRN PRN Reason: Pain Last Admin: 02/14/21 18:23 Dose: 100 ml Documented by: Ampicillin Sodium 2 gm/ Sodium (Chloride) 100 mls @ 200 mls/hr IV ONETIME ONE Stop: 02/14/21 10:29 Last Admin: 02/14/21 09:50 Dose: 200 mls/hr Documented by: Ampicillin Sodium 1 gm/ Sodium (Chloride) 100 mls @ 200 mls/hr IV Q4H ARLET Last Admin: 02/14/21 18:07 Dose: 200 mls/hr Documented by: Oxytocin/Lactated Ringer's (Pitocin In Lr 10 Units/1,000 Ml) 10 unit in 1,000 mls @ 500 mls/hr IV .CONTINUOUS ARLET Lactated Ringer's (Ringers, Lactated) 1,000 mls @ 100 mls/hr IV ASDIRECTED ARLET Last Admin: 02/14/21 11:17 Dose: 100 mls/hr Documented by: Lactated Ringer's (Ringers, Lactated) Confirm Administered Dose 1,000 mls @ as directed .ROUTE .STK-MED ONE Stop: 02/14/21 09:48 Last Admin: 02/14/21 12:05 Dose: 125 mls/hr Documented by: Sodium Chloride (Normal Saline) Confirm Administered Dose 100 mls @ as directed .ROUTE .STK-MED ONE Stop: 02/14/21 09:48 Last Admin: 02/14/21 13:44 Dose: Not Given Documented by: Sodium Chloride (Normal Saline) Confirm Administered Dose 1,000 mls @ as directed .ROUTE .STK-MED ONE Stop: 02/14/21 12:06 Last Admin: 02/14/21 13:44 Dose: Not Given Documented by: Oxytocin/Lactated Ringer's (Pitocin In Lr 10 Units/1,000 Ml) 10 unit in 1,000 mls @ 12 mls/hr IV TITRATE ARLET; Protocol Last Titration: 02/14/21 19:09 Dose: 83.33 munits/min, 500 mls/hr Documented by: Sodium Chloride (Normal Saline) Confirm Administered Dose 250 mls @ as directed .ROUTE .STK-MED ONE Stop: 02/14/21 17:10 Methylergonovine Maleate (Methylergonovine 0.2 Mg/1 Ml Amp) Confirm Administered Dose 0.2 mg .ROUTE .STK-MED ONE Stop: 02/14/21 19:30 Last Admin: 02/14/21 20:09 Dose: Not Given Documented by: Methylergonovine Maleate (Methylergonovine 0.2 Mg/1 Ml Amp) 0.2 mg IM NOW STA Stop: 02/14/21 19:34 Last Admin: 02/14/21 20:44 Dose: 0.2 mg Documented by: Misoprostol (Misoprostol 200 Mcg Tab) Confirm Administered Dose 600 mcg .ROUTE .STK-MED ONE Stop: 02/14/21 19:20 Last Admin: 02/14/21 20:08 Dose: Not Given Documented by: Misoprostol (Misoprostol 200 Mcg Tab) 600 mcg PO NOW STA Stop: 02/14/21 19:34 Last Admin: 02/14/21 19:25 Dose: 600 mcg Documented by: Nalbuphine HCl (Nalbuphine 10 Mg/1 Ml Vial) 10 mg IVPUSH Q2H PRN PRN Reason: Pain Ondansetron HCl (Ondansetron 4 Mg/2 Ml Sdv) 4 mg IVPUSH Q4H PRN PRN Reason: Nausea/Vomiting Sodium Chloride (Sodium Chloride 0.9% 10 Ml Syringe) 10 ml FLUSH ASDIRECTED PRN PRN Reason: Keep Vein Open Tranexamic Acid (Tranexamic Acid 1,000 Mg/10 Ml Amp) Confirm Administered Dose 1,000 mg .ROUTE .STK-MED ONE Stop: 02/14/21 19:29 Last Admin: 02/14/21 20:09 Dose: Not Given Documented by: Tranexamic Acid (Tranexamic Acid 1,000 Mg/10 Ml Amp) 1,000 mg IVPUSH ONETIME ONE Stop: 02/14/21 19:34 Last Admin: 02/14/21 19:33 Dose: 1,000 mg Documented by: - Interaction Infant Disposition, : in Room with Family Infant Interaction: Holding Infant Feeding: Breastfed ; Nursed Well Support Person: - Recovery Exam Fundal Tone: Firm Fundal Level: 1 Fingerbreadths Below Umbilicus Fundal Placement: Midline Lochia Amount: Small Lochia Color: Rubra/Red Perineum Description: Other (see below) Other Perinuem Description: 1st degree lac with repair Episiotomy/Laceration: Approximated Bladder Status: Voiding - Exam General: Alert, Oriented, Cooperative GI/Abdominal Exam: Soft, Non-Tender - Problem List & Annotations (1) 38 weeks gestation of SNOMED Code(s): 29206024 Code(s): Z3A.38 - 38 WEEKS GESTATION OF Status: Acute Current Visit: Yes (2) Normal labor SNOMED Code(s): 22200443 Code(s): O80 - ENCOUNTER FOR FULL-TERM UNCOMPLICATED DELIVERY; Z37.9 - OUTCOME OF DELIVERY, UNSPECIFIED Status: Acute Current Visit: No (3) Idiopathic thrombocytopenic purpura (ITP) SNOMED Code(s): 85806025 Code(s): D69.3 - IMMUNE THROMBOCYTOPENIC PURPURA Status: Acute Current Visit: Yes (4) GBS (group B Streptococcus carrier), +RV culture, currently SNOMED Code(s): 5474356304208, 051883663, 0694215989076 Code(s): O99.820 - STREPTOCOCCUS B CARRIER STATE COMPLICATING Status: Acute Current Visit: No (5) hemorrhage SNOMED Code(s): 46379319 Code(s): O72.1 - OTHER IMMEDIATE HEMORRHAGE Status: Acute Current Visit: Yes Qualifiers: hemorrhage type: coagulation defects Qualified Code(s): O72.3 - coagulation defects (6) Vaginal delivery SNOMED Code(s): 665271817 Code(s): O80 - ENCOUNTER FOR FULL-TERM UNCOMPLICATED DELIVERY Status: Acute Current Visit: No - Problem List Review Problem List Initiated/Reviewed/Updated: Yes - My Orders Last 24 Hours: My Active Orders 02/14/21 09:42 Resuscitation Status Routine 02/14/21 09:57 RAPID PLASMA REAGIN,RPR [CHEM] Routine 02/14/21 Dinner Regular Diet [DIET] 02/14/21 20:12 Acetaminophen [TylenoL] 650 mg PO Q4H PRN Benzocaine/Menthol [Dermoplast Pain Relief 20%-0.5% [place]] See Dose Instructions TOP ASDIRECTED PRN Docusate Sodium [Colace] 100 mg PO BID PRN witch Lindsay [Tucks] 1 pad TOP ASDIRECTED PRN Heat Therapy [OM.PC] PRN 02/14/21 20:12 Activity as Tolerated [RC] PER UNIT ROUTINE Vital Signs [RC] 03,,, Assess Lochia [WOMSER] Per Unit Routine Assess Uterine Involution [WOMSER] Per Unit Routine Breast Pump [WOMSER] Per Unit Routine Ice Therapy [OM.PC] Per Unit Routine Perineal Care [OM.PC] Per Unit Routine Peripheral IV Discontinue [OM.PC] Routine Sitz Bath [OM.PC] Per Unit Routine 02/15/21 20:12 Heat Therapy [OM.PC] PRN - Assessment Assessment:: PPD#1 - Plan Plan:: * Plts 102 this AM. Will give ibuprofen given pain not well controlled. Follow up with Hematology team after discharge * Breast feeding * Discharge today per patient preferenc
[2021-02-15] MEDS ORDERED: Ibuprofen 600 MG Tab PO PRN (05:11)
--- NOTE | 2021-02-15 08:53 | PCM48HPAN ---
Post Anesthesia Note - EVALUATION WITHIN 48HRS OF ANESTHETIC Vital Signs in Normal Range: Yes Patient Participated in Evaluation: Yes Respiratory Function Stable: Yes Airway Patent: Yes Cardiovascular Function Stable: Yes Hydration Status Stable: Yes Pain Control Satisfactory: Yes Nausea and Vomiting Control Satisfactory: Yes Mental Status Recovered: Yes Vital Signs: Last Vital Signs Temp 36.7 C 02/15/21 04:20 Pulse 90 02/15/21 04:20 Resp 14 02/15/21 04:20 BP 115/72 02/15/21 04:20 Pulse Ox 94 L 02/15/21 04:20
--- NOTE | 2021-02-15 14:30 | PCM.DEL ---
L & D Note - General Info Date of Service: 02/14/21 - Delivery Note Labor: Augmented by ARM, Augmented by Oxytocin Delivery Outcome: Livebirth Infant Delivery Method: Spontaneous Vaginal Delivery-Single Delivery Mode: Spontaneous Presentation: Left Occiput Anterior (SMITHA) Nuchal Cord: Present, Reduced Anesthesia Type: Epidural Amniotic Fluid Description: Clear Episiotomy Type: None Laceration: 1st Degree Suture type: Vicryl Suture size: 2-0 Placenta: Intact, Spontaneous Cord: 3 Vessels Estimated Blood Loss: 550 Resuscitation Needed: Yes [place]: Bulb Syringe, Stimulated, Warmed, [place] Used, Warmer Used Delivery Comments (Free Text/Narrative):: Patient found to be have persistent small anterior lip, but able to push past. With maternal pushing effort head delivered from SMITHA presentation. Nuchal present/reduced. With gentle downward traction the shoulders and body delivered. Infant placed on maternal abdomen. Cord clamped and cut. Cord blood obtained . Placenta allowed time to separate and expelled intact. Patient with moderate bleeding after this. Given 600 mcg of cytotec. Still with poor tone and so given 0.2 mg of methergine. Still with moderate flow and so given 1,000 of tranexamic acid with good response. (of note platelets had completed infusion prior to delivery). Small 1st degree laceration repaired with 2-0 Vicryl in typical fashion - General Info Date of Service: 02/14/21 - Patient Data Weight - Most Recent: 80.558 kg - Exam Urinary Catheter Total Time: 0Days 7Hours - Problem List & Annotations (1) 38 weeks gestation of SNOMED Code(s): 07558336 Code(s): Z3A.38 - 38 WEEKS GESTATION OF Status: Acute Current Visit: Yes (2) Normal labor SNOMED Code(s): 38007683 Code(s): O80 - ENCOUNTER FOR FULL-TERM UNCOMPLICATED DELIVERY; Z37.9 - OUTCOME OF DELIVERY, UNSPECIFIED Status: Acute Current Visit: No (3) Idiopathic thrombocytopenic purpura (ITP) SNOMED Code(s): 76820669 Code(s): D69.3 - IMMUNE THROMBOCYTOPENIC PURPURA Status: Acute Current Visit: Yes (4) GBS (group B Streptococcus carrier), +RV culture, currently SNOMED Code(s): 7943388315657, 902252431, 6036629734697 Code(s): O99.820 - STREPTOCOCCUS B CARRIER STATE COMPLICATING Status: Acute Current Visit: No (5) Vaginal delivery SNOMED Code(s): 478692607 Code(s): O80 - ENCOUNTER FOR FULL-TERM UNCOMPLICATED DELIVERY Status: Acute Current Visit: No (6) hemorrhage SNOMED Code(s): 07788812 Code(s): O72.1 - OTHER IMMEDIATE HEMORRHAGE Status: Acute Current Visit: Yes Qualifiers: hemorrhage type: coagulation defects Qualified Code(s): O72.3 - coagulation defects - Problem List Review Problem List Initiated/Reviewed/Updated: Yes - My Orders Last 24 Hours: My Active Orders 02/14/21 Dinner Regular Diet [DIET] 02/14/21 20:12 Acetaminophen [TylenoL] 650 mg PO Q4H PRN Benzocaine/Menthol [Dermoplast Pain Relief 20%-0.5% [place]] See Dose Instructions TOP ASDIRECTED PRN Docusate Sodium [Colace] 100 mg PO BID PRN witch Julito [Tucks] 1 pad TOP ASDIRECTED PRN Heat Therapy [OM.PC] PRN 02/14/21 20:12 Activity as Tolerated [RC] PER UNIT ROUTINE Vital Signs [RC] ,,, Assess Lochia [WOMSER] Per Unit Routine Assess Uterine Involution [WOMSER] Per Unit Routine Breast Pump [WOMSER] Per Unit Routine Ice Therapy [OM.PC] Per Unit Routine Perineal Care [OM.PC] Per Unit Routine Peripheral IV Discontinue [OM.PC] Routine Sitz Bath [OM.PC] Per Unit Routine 02/15/21 04:59 Ready for Discharge [RC] PER UNIT ROUTINE 02/15/21 05:11 Ibuprofen [Motrin] 600 mg PO Q6H PRN 02/15/21 20:12 Heat Therapy [OM.PC] PRN - Assessment Assessment:: PPD#0 - Plan Plan:: * Routine cares * Breast feeding * Monitor bleeding closely. Repeat CBC in AM
[2021-02-15 21:15] VITALS: BP 123/72; PULSE 79
== END 2021-02-15 20:15 | disposition home or self-care (01) | DRG 560 ==
LOC: JD.OBCHECK 09:00 → JD.OB 09:00 → JD.OBCHECK 09:49 → JD.OB 09:50 → OBSVTOIN 19:07 → JD.OB 19:08
PROVIDERS: ADMIT Obstetrics & Gynecology; ATTEND Obstetrics & Gynecology
PROC: 10E0XZZ Delivery of Products of Conception, External Approach (ICD-10-PCS; principal; 2021-02-14)
PROC: 10907ZC Drainage of Amniotic Fluid, Therapeutic from Products of Conception, Via Natural or Artificial Opening (ICD-10-PCS; 2021-02-14)
PROC: 0HQ9XZZ Repair Perineum Skin, External Approach (ICD-10-PCS; 2021-02-14)
PROC: 10H07YZ Insertion of Other Device into Products of Conception, Via Natural or Artificial Opening (ICD-10-PCS; 2021-02-14)
PROC: 30233R1 Transfusion of Nonautologous Platelets into Peripheral Vein, Percutaneous Approach (ICD-10-PCS; 2021-02-14)
PROC: 3E0R3BZ Introduction of Anesthetic Agent into Spinal Canal, Percutaneous Approach (ICD-10-PCS; 2021-02-14)
PROC: 00HU33Z Insertion of Infusion Device into Spinal Canal, Percutaneous Approach (ICD-10-PCS; 2021-02-14)
DX: O99.12 Other diseases of the blood and blood-forming organs and certain disorders involving the immune mechanism complicating childbirth (principal); D69.3 Immune thrombocytopenic purpura; Z37.0 Single live birth; O99.824 Streptococcus B carrier state complicating childbirth; O69.81X0 Labor and delivery complicated by cord around neck, without compression, not applicable or unspecified; O99.62 Diseases of the digestive system complicating childbirth; K21.9 Gastro-esophageal reflux disease without esophagitis; Z20.822 Contact with and (suspected) exposure to COVID-19; O70.0 First degree perineal laceration during delivery; Z3A.38 38 weeks gestation of pregnancy; Z91.09 Other allergy status, other than to drugs and biological substances; Z88.8 Allergy status to other drugs, medicaments and biological substances; Z79.899 Other long term (current) drug therapy
CPT/HCPCS: 01967; 36415; 36430; 51701; 51702; 59025; 59409; 85027; 86592; 86850; 86900; 86901; A9270-GY; J0290; J2210; J2590; J3010; J3490; J7120; P9034; U0002